=== PATIENT | female | born 1965 | race Caucasian/White ===

== ENCOUNTER 2016-08-06 15:01 | Emergency (ER) | payer BC, OTHER ==
[~2016-08-06] VITALS: Ht 172.7 cm; Wt 84.9 kg
[~2016-08-06 15:01] MED LIST: ONDA4TAB7 PO; SUMA100T PO
--- OUTSIDE RECORDS SUMMARY | 2016-08-06 15:06 | XMS REPORT | Referral Summary ---
Author Author [facility] Organization [facility] Address Unknown Phone Unavailable Care Team Providers Care Tank Bottom Assembler Name Role Phone Maral Shipman Primary Care Physician [phone] Encounter Date(s): 07/27/14 - 07/27/14 [facility] [address], [facility] [address] [place], [place] [address] Discharge Diagnosis: Mild sleep apnea Discharge Disposition: 01-Home or Self Care Attending Physician: Franklin Carrington MD Admitting Physician: Franklin Carrington MD Vital Signs No data available for this section Problem List Condition Effective Dates Status Health Status Informant Acute low back Active pain(Confirmed) Adult-onset Active obesity(Confirmed) Allergies(Confirmed) Active Benign essential Active hypertension(Confirm ed) FHx: sleep Active apnea(Confirmed) Fear of Active flying(Confirmed) GERD without Active esophagitis(Confirme d) Primary Active osteoarthritis of left hip(Confirmed) Chronic Active insomnia(Confirmed) Mild sleep Active apnea(Confirmed) Snorings(Confirmed) Active Benign Active headache(Confirmed) Trochanteric Active bursitis of left hip(Confirmed) Allergies, Adverse Reactions, Alerts Substance Reaction Severity Status oxyCODONE Nausea Active Medications atenolol 25 mg oral tablet See Instructions, 1 TABS ORAL BID, # 60 tabs, 5 Refill(s), eRx: [facility] [id number], 1 TABS ORAL BID Start Date: 11/24/14 Status: Ordered Ativan 0.5 mg oral tablet 0.5 mg 1 tabs, Oral, Bedtime (once a day), # 10 tabs, 0 Refill(s) Start Date: 08/13/14 Status: Ordered ibuprofen 200 mg oral tablet 800 mg 4 tabs, Oral, q6hr, 0 Refill(s) Start Date: 01/18/15 Status: Ordered Imitrex 100 mg oral tablet See Instructions, 1 TAB PO AT ONSET OF HEADACHE MAY REPEAT ONCE IN 24 HOURS MAX OF 2 TAB PER 24 HR., # 9 tabs, eRx: [facility] [id number], 1 TAB PO AT ONSET OF HEADACHE MAY REPEAT ONCE IN 24 HOURS MAX OF 2 TAB PER 24 HR. Start Date: 12/17/14 Status: Ordered ProAir HFA 90 mcg/inh inhalation aerosol 2 puffs, Inhalation, q4hr, as needed for wheezing, # 8.5 g, 1 Refill(s), Pharmacy: [facility] [id number] Start Date: 09/15/14 Status: Ordered Singulair 10 mg oral tablet 10 mg 1 tabs, Oral, qPM, # 90 tabs, 0 Refill(s), Pharmacy: [facility] 51046, 1 tabs Oral qPM Start Date: 09/15/14 Status: Ordered Results No data available for this section Immunizations Vaccine Date Refusal Reason tetanus/diphth/pertuss (Tdap) adult/adol 08/22/10 poliovirus vaccine, inactivated 11/16/03 tetanus-diphth toxoids (Td) adult/adol 11/16/03 Procedures Procedure Date Related Diagnosis Body Site sinus polypectomy/deviated septum 2006 H/O sinus surgery H/O total hysterectomy Social History Social History Type Response Smoking Status Never smoker Assessment and Plan No data available for this section
--- OUTSIDE RECORDS SUMMARY | 2016-08-06 15:06 | XMS REPORT | Referral Summary ---
Author Author [facility] Organization [facility] Address Unknown Phone Unavailable Care Team Providers Care Experimental Machining Lab Manager Name Role Phone Maral Shipman Primary Care Physician [phone] Encounter VC Date(s): 02/05/15 - 02/05/15 [facility], [address] [place] [address] Discharge Diagnosis: Chronic migraine without aura, intractable, without status migrainosus Discharge Disposition: 01-Home or Self Care Attending Physician: Kip Padgett MD Admitting Physician: Kip Padgett MD Vital Signs Most recent to 1 oldest [Reference Range]: Temperature Tympanic 35.9 degC [36.6-38.1 degC] *LOW* (02/05/15 10:07 AM) Peripheral Pulse 67 bpm Rate [60-100 bpm] (02/05/15 10:07 AM) Blood Pressure 140/62 mmHg [90-140/60-90 mmHg] (02/05/15 10:07 AM) SpO2 96 % (02/05/15 10:07 AM) Problem List Condition Effective Dates Status Health [...] of left hip(Confirmed) Allergies, Adverse Reactions, Alerts No Known Medication Allergies Medications atenolol 25 mg oral tablet See Instructions, 1 TABS ORAL BID, # 60 tabs, 5 Refill(s), eRx: [facility] [id number], 1 TABS ORAL BID Start Date: 11/24/14 [...] TAB PER 24 HR., # 9 tabs, 1 Refill(s), eRx: [facility] [id number], 1 TAB PO AT ONSET OF HEADACHE MAY REPEAT ONCE IN 24 HOURS MAX OF 2 TAB PER 24 HR. Start Date: 02/01/15 Status: Ordered ProAir HFA 90 mcg/inh inhalation aerosol 2 puffs, Inhalation, q4hr, as needed for wheezing, # 8.5 g, 1 Refill(s), Pharmacy: [facility] [id number] Start Date: 09/15/14 Status: Ordered Singulair 10 mg oral tablet 10 mg 1 tabs, Oral, qPM, # 90 tabs, 0 Refill(s), Pharmacy: [facility] [id number], 1 tabs Oral qPM Start Date: 09/15/14 [...] Smoking Status Never smoker Assessment and Plan Extracted from: Title: Ambulatory Patient Education Author: Kip Padgett MD Date: Family Medicine Migraine Headache A migraine headache is an intense, throbbing pain on one or both sides of your head. A migraine can last for 30 minutes to several hours. CAUSES The exact cause of a migraine headache is not always known. However, a migraine may be caused when nerves in the brain become irritated and release chemicals that cause inflammation. This causes pain. Certain things may also trigger migraines, such as: Alcohol. Smoking. Stress. Menstruation. Aged cheeses. Foods or drinks that contain nitrates, glutamate, aspartame, or tyramine. Lack of sleep. Chocolate. Caffeine. Hunger. Physical exertion. Fatigue. Medicines used to treat chest pain (nitroglycerine), control pills, estrogen, and some blood pressure medicines. SIGNS AND SYMPTOMS Pain on one or both sides of your head. Pulsating or throbbing pain. Severe pain that prevents daily activities. Pain that is aggravated by any physical activity. Nausea, vomiting, or both. Dizziness. Pain with exposure to bright lights, loud noises, or activity. General sensitivity to bright lights, loud noises, or smells. Before you get a migraine, you may get warning signs that a migraine is coming ( aura). An aura may include: Seeing flashing lights. Seeing bright spots, halos, or zigzag lines. Having tunnel vision or blurred vision. Having feelings of numbness or tingling. Having trouble talking. Having muscle weakness. DIAGNOSIS A migraine headache is often diagnosed based on: Symptoms. Physical exam. A CT scan or MRI of your head. These imaging tests cannot diagnose migraines, but they can help rule out other causes of headaches. TREATMENT Medicines may be given for pain and nausea. Medicines can also be given to help prevent recurrent migraines. HOME CARE INSTRUCTIONS Only take [id number] or prescription medicines for pain or discomfort as directed by your health care provider. The use of long-term narcotics is not recommended. Lie down in a dark, quiet room when you have a migraine. Keep a journal to find out what may trigger your migraine headaches. For example, write down: What you eat and drink. How much sleep you get. Any change to your diet or medicines. Limit alcohol consumption. Quit smoking if you smoke. Get 79 hours of sleep, or as recommended by your health care provider. Limit stress. Keep lights dim if bright lights bother you and make your migraines worse. SEEK IMMEDIATE MEDICAL CARE IF: Your migraine becomes severe. You have a fever. You have a stiff neck. You have vision loss. You have muscular weakness or loss of muscle control. You start losing your balance or have trouble walking. You feel faint or pass out. You have severe symptoms that are different from your first symptoms. MAKE SURE YOU: Understand these instructions. Will watch your condition. Will get help right away if you are not doing well or get worse. Document Released: 03/11/2006 Document Revised: 07/26/2014 Document Reviewed: ExitCare Patient Information 2015 [employer]. This information is not intended to replace advice given to you by your health care provider. Make sure you discuss any questions you have with your health care provider. Follow Up With: Where: When: Srinivas Shipman , only if needed Comments: Extracted from: Title: Office Visit Note Author: Kip Padgett MD Date: 02/05/15 Assessment/Plan Migraine She will be given Phenergan 50 mg and Toradol 60 mg intramuscularly. She will continue with her regular medication. She did bring a school boat driver with her today who will drive her home. She will follow-up with her PCP as needed.
--- OUTSIDE RECORDS SUMMARY | 2016-08-06 15:06 | XMS REPORT | Referral Summary ---
Author Author [facility] Organization [facility] Address Unknown Phone Unavailable Care Team Providers Care Batch Roller Operator Name Role Phone Laquitamireya Maral Primary Care Physician [phone] Encounter VC Date(s): 01/18/15 - 01/18/15 [facility] [address] [place], [place] [address] Discharge Diagnosis: Primary osteoarthritis of left hip Discharge Disposition: 01-Home or Self Care Attending Physician: Rudy Paul MD Admitting Physician: Rudy Paul MD Vital Signs Most recent to 1 oldest [Reference Range]: Respiratory Rate 18 br/min [14-20 br/min] (01/18/15 9:42 AM) Problem List Condition Effective Dates Status [...] BID, # 60 tabs, 5 Refill(s), eRx: [facility] [id number], 1 TABS ORAL BID Start Date: 11/24/14 [...] PER 24 HR., # 9 tabs, eRx: [facility] 31095, 1 TAB PO AT ONSET OF HEADACHE MAY REPEAT ONCE IN 24 HOURS MAX OF 2 TAB PER 24 HR. Start Date: 12/17/14 Status: Ordered ProAir HFA 90 mcg/inh inhalation aerosol 2 puffs, Inhalation, q4hr, as needed for wheezing, # 8.5 g, 1 Refill(s), Pharmacy: [facility] [id number] Start Date: 09/15/14 Status: Ordered Singulair 10 mg oral tablet 10 mg 1 tabs, Oral, qPM, # 90 tabs, 0 Refill(s), Pharmacy: [facility] [id number], 1 tabs Oral qPM Start Date: 09/15/14 Status: Ordered Results No data available for this section Immunizations Vaccine Date Refusal Reason tetanus/diphth/pertuss (Tdap) adult/adol 08/22/10 poliovirus vaccine, inactivated 11/16/03 tetanus-diphth toxoids (Td) adult/adol 11/16/03 Procedures Procedure Date Related Diagnosis Body Site Arthrocentesis, aspiration and/or injection, 01/18/15 major joint or bursa (eg, shoulder, hip, knee, subacromial bursa); without ultrasound guidance sinus polypectomy/deviated septum 2006 H/O sinus surgery H/O total hysterectomy Social History Social History Type Response Smoking Status Never smoker Assessment and Plan No data available for this section
--- OUTSIDE RECORDS SUMMARY | 2016-08-06 15:07 | XMS REPORT | Referral Summary ---
Author Author [facility] Organization [facility] Address Unknown Phone Unavailable Care Team Providers Care Manager Six Sigma Name Role Phone Maral Shipman Primary Care Physician [phone] Encounter VC Date(s): 09/15/14 - 09/15/14 [facility] [address] [place] [address]- Discharge Diagnosis: Asthma flare Discharge Diagnosis: Seasonal allergies Discharge Disposition: 01-Home or Self Care Attending Physician: Madai Gill APRN Admitting Physician: Madai Gill APRN Vital Signs Most recent to 1 oldest [Reference Range]: Temperature Tympanic 36.9 degC [36.6-38.1 degC] (09/15/14 10:15 AM) Peripheral Pulse 64 bpm Rate [60-100 bpm] (09/15/14 10:15 AM) Blood Pressure 122/68 mmHg [90-140/60-90 mmHg] (09/15/14 10:15 AM) SpO2 98 % (09/15/14 10:15 AM) Problem List Condition Effective Dates Status [...] BID, # 60 tabs, 5 Refill(s), eRx: [facility] 35354, 1 TABS ORAL BID Start Date: 11/24/14 Status: Ordered Ativan 0.5 mg oral tablet 0.5 mg 1 tabs, Oral, Bedtime (once a day), [place], # 10 tabs, 0 Refill(s) Start Date: 03/09/15 Status: Ordered ibuprofen 200 mg oral tablet 800 mg 4 tabs, Oral, q6hr, 0 Refill(s) Start Date: 01/18/15 Status: Ordered Imitrex 100 mg oral tablet See Instructions, 1 TAB PO AT ONSET OF HEADACHE MAY REPEAT ONCE IN 24 HOURS MAX OF 2 TAB PER 24 HR., # 9 tabs, 1 Refill(s), eRx: [facility] [id number], 1 TAB PO AT ONSET OF HEADACHE MAY REPEAT ONCE IN 24 HOURS MAX OF 2 TAB PER 24 HR. Start Date: 02/01/15 Status: Ordered ProAir HFA 90 mcg/inh inhalation aerosol 2 puffs, Inhalation, q4hr, as needed for wheezing, # 8.5 g, 1 Refill(s), Pharmacy: [facility] [id number] Start Date: 09/15/14 Status: Ordered Singulair 10 mg oral tablet 10 mg 1 tabs, Oral, qPM, # 90 tabs, 0 Refill(s), Pharmacy: [facility] 15208, 1 tabs Oral qPM Start Date: 09/15/14 [...]
--- OUTSIDE RECORDS SUMMARY | 2016-08-06 15:07 | XMS REPORT | Referral Summary ---
Author Author [facility] Organization [facility] Address Unknown Phone Unavailable Care Team Providers Care Pit Inspector Name Role Phone Maral Shipman Primary Care Physician [phone] Encounter VC Date(s): 02/24/16 - 02/24/16 [facility] [address] [place] [address] Discharge Diagnosis: Migraine headache Discharge Disposition: 01-Home or Self Care Attending Physician: Samira Carrington PA-C Admitting Physician: Samira Carrington PA-C Vital Signs Most recent to 1 oldest [Reference Range]: Peripheral Pulse 72 bpm Rate [60-100 bpm] (02/24/16 2:28 PM) Respiratory Rate 18 br/min [14-20 br/min] (02/24/16 2:28 PM) Blood Pressure 134/82 mmHg [90-140/60-90 mmHg] (02/24/16 2:28 PM) Problem List Condition Effective Dates Status Health Status Informant Acute low back Active pain(Confirmed) Adult-onset Active obesity(Confirmed) Allergies(Confirmed) Active Benign essential Active hypertension(Confirm ed) Chronic back Active pain(Confirmed) FHx: sleep Active apnea(Confirmed) Fear of Active flying(Confirmed) GERD without Active esophagitis(Confirme d) Primary Active osteoarthritis of left hip(Confirmed) Chronic Active insomnia(Confirmed) Mild sleep Active apnea(Confirmed) Snorings(Confirmed) Active Benign Active headache(Confirmed) Trochanteric Active bursitis of left hip(Confirmed) Allergies, Adverse Reactions, Alerts No Known Medication Allergies Medications atenolol 25 mg oral tablet See Instructions, TAKE 1 TABLET BY MOUTH TWICE DAILY, # 180 tabs, eRx: [facility] 77169, TAKE 1 TABLET BY MOUTH TWICE DAILY Start Date: 01/20/16 Status: Ordered Ativan 0.5 mg oral tablet 0.5 mg 1 tabs, Oral, Bedtime (once a day), [facility], # 10 tabs, 0 Refill(s) Start Date: 05/23/15 Status: Ordered hydroCHLOROthiazide 25 mg oral tablet 25 mg 1 tabs, Oral, Daily, # 30 tabs, 0 Refill(s), Pharmacy: [facility] [id number], 1 tabs Oral Daily Start Date: 02/06/16 Status: Ordered ibuprofen 200 mg oral tablet 800 mg 4 tabs, Oral, q6hr, 0 Refill(s) Start Date: 01/18/15 Status: Ordered ProAir HFA 90 mcg/inh inhalation aerosol 2 puffs, Inhalation, q4hr, as needed for wheezing, # 8.5 g, 1 Refill(s), Pharmacy: [facility] [id number] Start Date: 09/15/14 Status: Ordered SUMAtriptan 100 mg oral tablet See Instructions, TAKE 1 TABLET BY MOUTH AT ONSET OF HEADACHE. MAY REPEAT ONCE IN 24 HOURS. MAX OF 2 TABLET DAILY, # 9 tabs, 1 Refill(s), Pharmacy: [facility] [id number], TAKE 1 TABLET BY MOUTH AT ONSET OF HEADACHE. MAY REPEAT ONCE IN 24 HOURS. M... Start Date: 02/24/16 Status: Ordered Zofran 4 mg oral tablet 4 mg 1 tabs, Oral, q12hr, # 20 tabs, 0 Refill(s), Pharmacy: [facility] [id number], 1 tabs Oral q12hr Start Date: 02/24/16 Status: Ordered Results No data available for this section Immunizations Vaccine Date Refusal Reason tetanus/diphth/pertuss (Tdap) adult/adol 08/22/10 poliovirus vaccine, inactivated 11/16/03 tetanus-diphth toxoids (Td) adult/adol 11/16/03 Procedures Procedure Date Related Diagnosis Body Site sinus polypectomy/deviated septum 2006 H/O sinus surgery H/O total hysterectomy Social History Social History Type Response Smoking Status Never smoker Assessment and Plan Extracted from: Title: Office Visit Note- Migraine, Author: Samira Carrington PA-C Date : 02/24/16 URI Assessment/Plan Migraine headache Pt was given Demerol 50mg and Phenergan 50mg IM today in clinic. Has mechanic driver. Advised to go homeand rest.Refilled Zofran and Imitrex as well if needed. She is to let us know next week if cold sx areworsening after the migraine resolves. Ordered: ondansetron, 4 mg 1 tabs, Oral, q12hr, # 20 tabs, 0 Refill(s), Pharmacy: [facility] [id number], 1 tabs Oral q12hr SUMAtriptan, See Instructions, TAKE 1 TABLET BY MOUTH AT ONSET OF HEADACHE. MAY REPEAT ONCE IN 24 HOURS. MAX OF 2 TABLET DAILY, # 9 tabs, 1 Refill(s), Pharmacy: [facility] [id number], TAKE 1 TABLET BY MOUTH AT ONSET OF HEADACHE. MAY REPEAT ONCE IN 24 HOURS. M... Office Visit Level 3 Est [id number]
--- OUTSIDE RECORDS SUMMARY | 2016-08-06 15:07 | XMS REPORT | Referral Summary ---
Author Organization Unknown Address Unknown Phone Unavailable Care Team Providers Care Molder Fitting Name Role Phone Maral Shipman Primary Care Physician [phone] Encounter VC Date(s): 04/20/14 - 04/20/14 [facility], [place], Family [address] [place] [id number] Discharge Diagnosis: FHx: sleep apnea Discharge Diagnosis: Benign essential hypertension Discharge Diagnosis: Acute anxiety Discharge Diagnosis: Snorings Discharge Diagnosis: Chronic insomnia Discharge Diagnosis: Benign headache Discharge Diagnosis: GERD without esophagitis Discharge Diagnosis: Adult-onset obesity Discharge Disposition: Home or Self Care Attending Physician: Srinivas Shipman MD Admitting Physician: Srinivas Shipman MD Vital Signs Most recent to 1 oldest [Reference Range]: Blood Pressure 150/100 mmHg [90-140/60-90 mmHg] *HI* (04/20/14 10:40 AM) Problem List Condition Effective Dates Status Health Status Informant Adult-onset Active obesity(Confirmed) Allergies(Confirmed) Active Benign essential Active hypertension(Confirm ed) FHx: sleep Active apnea(Confirmed) GERD without Active esophagitis(Confirme d) Chronic Active insomnia(Confirmed) Snorings(Confirmed) Active Benign Active headache(Confirmed) Allergies, Adverse Reactions, Alerts Substance Reaction Severity Status oxyCODONE Nausea Active Medications Andra-D 12 Hour 1 tabs, Oral, q12hr, 0 Refill(s) Start Date: 09/11/13 Status: Ordered atenolol 25 mg oral tablet 1 tabs, Oral, BID, # 60 tabs, 0 Refill(s), Pharmacy: [id number] , 1 tabs Oral BID Start Date: 04/20/14 Status: Ordered Ativan 0.5 mg oral tablet 1 tabs, Oral, Bedtime (once a day), 0 Refill(s) Start Date: 09/11/13 Status: Ordered Imitrex 100 mg oral tablet See Instructions, 1 TAB PO AT ONSET OF HEADACHE MAY REPEAT ONCE IN 24 HOURS MAX OF 2 TAB PER 24 HR., # 9 tabs, eRx: [facility] [id number], 1 TAB PO AT ONSET OF HEADACHE MAY REPEAT ONCE IN 24 HOURS MAX OF 2 TAB PER 24 HR. Special Instructions: 1 TAB PO AT ONSET OF HEADACHE MAY REPEAT ONCE IN 24 HOURS MAX OF 2 TAB PER 24 HR. Start Date: 03/09/14 Status: Ordered Ventolin HFA 90 mcg/inh inhalation aerosol 2 puffs, Inhalation, q4hr, as needed for wheezing, # 8 g, 0 Refill(s) Start Date: 09/11/13 Status: Ordered Results Hematology Most recent to 1 oldest [Reference Range]: WBC [4.8-10.8 K/uL] 8.5 K/uL (04/20/14 11:31 AM) RBC [4.00-5.20 M/uL] 5.55 M/uL *HI* (04/20/14 11:31 AM) Hgb [12.0-16.0 13.2 gm/dL gm/dL] (04/20/14 11:31 AM) Hct [37.0-47.0 %] 41.4 % (04/20/14 11:31 AM) MCV [82.0-99.0 fL] 74.6 fL *LOW* (04/20/14 11:31 AM) MCH [27.0-32.0 pg] 23.8 pg *LOW* (04/20/14 11:31 AM) MCHC [32.0-36.0 31.9 gm/dL gm/dL] *LOW* (04/20/14 11:31 AM) RDW [11.5-14.5 %] 17.0 % *HI* (04/20/14 11:31 AM) Platelet [150-400 417 K/uL K/uL] *HI* (04/20/14 11:31 AM) MPV [8.8-14.8 fL] 11.0 fL (04/20/14 11:31 AM) Immature 0.2 % Granulocytes (04/20/14 11:31 AM) [0.0-1.0 %] Neutrophils [51-75 66 % %] (04/20/14 11:31 AM) Lymphocytes [20-46 23 % %] (04/20/14 11:31 AM) Monocytes [4-11 %] 9 % (04/20/14 AM) Eosinophils [0-4 %] 1 % (04/20/14 AM) Basophils [0-2 %] 1 % (04/20/14 AM) Neutro Absolute 5.55 THOUS [1.90-7.00 THOUS] (04/20/14 AM) Lymph Absolute 1.94 THOUS [0.80-3.30 THOUS] (04/20/14 AM) [place] Absolute 0.78 THOUS [0.30-1.00 THOUS] (04/20/14 AM) Eos Absolute 0.11 THOUS [0.00-0.50 THOUS] (04/20/14 AM) Baso Absolute 0.07 THOUS [0.00-0.20 THOUS] (04/20/14 AM) Chemistry Most recent to 1 oldest [Reference Range]: Sodium Lvl [135-144 138 mEq/L mEq/L] (04/20/14 AM) Potassium Lvl 4.3 mEq/L [3.5-5.2 mEq/L] (04/20/14 AM) Chloride [99-111 104 mEq/L mEq/L] (04/20/14 AM) CO2 [22-31 mEq/L] 24 mEq/L (04/20/14 AM) AGAP [3-20] 10 (04/20/14 AM) BUN [10-20 mg/dL] 12 mg/dL (04/20/14 AM) Glucose Lvl [70-99 89 mg/dL mg/dL] (04/20/14 AM) Creatinine Lvl 0.69 mg/dL [0.57-1.11 mg/dL] (04/20/14 AM) eGFR [>60 mL/min] >60 mL/min 1 (04/20/14 AM) Calcium Lvl 9.8 mg/dL [8.9-10.5 mg/dL] (04/20/14 AM) Albumin Lvl [3.5-5.0 4.4 gm/dL gm/dL] (04/20/14 11:31 AM) Total Protein 7.7 gm/dL [6.4-8.3 gm/dL] (04/20/14 11:31 AM) Globulin [1.8-4.0 3.3 gm/dL gm/dL] (04/20/14 11:31 AM) ALT [0-55 unit/L] 20 unit/L (04/20/14 11:31 AM) AST [5-34 unit/L] 18 unit/L (04/20/14 11:31 AM) Alk Phos [40-150 87 unit/L unit/L] (04/20/14 11:31 AM) Bili Total [0.2-1.2 1.2 mg/dL mg/dL] (04/20/14 11:31 AM) Chol [0-199 mg/dL] 196 mg/dL (04/20/14 11:31 AM) Trig [0-149 mg/dL] 125 mg/dL (04/20/14 11:31 AM) HDL [40-84 mg/dL] 56 mg/dL (04/20/14 11:31 AM) LDL [0-130 mg/dL] 115 mg/dL (04/20/14 11:31 AM) VLDL Cholesterol 25 mg/dL [0-28 mg/dL] (04/20/14 11:31 AM) Cardiac Risk 3.5 [0.0-5.0] (04/20/14 11:31 AM) 1Result Comment: Multiply eGFR results by 1.21 for race. Urinalysis Most recent to 1 oldest [Reference Range]: UA Color Yellow (04/20/14 4:45 PM) UA Appear Cloudy *ABN* (04/20/14 4:45 PM) UA pH [5.0-8.0] 5.5 (04/20/14 4:45 PM) UA Leuk Est Negative [Negative] (04/20/14 4:45 PM) UA Nitrite Negative [Negative] (04/20/14 4:45 PM) UA Protein Negative [Negative] (04/20/14 4:45 PM) UA Glucose Negative [Negative] (04/20/14 4:45 PM) UA Ketones Negative [Negative] (04/20/14 4:45 PM) UA Urobilinogen 0.2 mg/dL [<1.0 mg/dL] (04/20/14 4:45 PM) UA Bili [Negative] Negative (04/20/14 4:45 PM) UA Blood [Negative] Negative (04/20/14 4:45 PM) UA Spec Grav 1.020 [1.003-1.030] (04/20/14 4:45 PM) Type Voided (04/20/14 4:45 PM) Immunizations Vaccine Date Refusal Reason tetanus/diphth/pertuss (Tdap) adult/adol 08/22/10 poliovirus vaccine, inactivated 11/16/03 tetanus-diphth toxoids (Td) adult/adol 11/16/03 Procedures Procedure Date Related Diagnosis Body Site Collection of venous blood by venipuncture 04/20/1424-Mar-2014 00:38:50<$> sinus polypectomy/deviated septum 2006 Social History Social History Type Response Smoking Status Never smoker Assessment and Plan Extracted from: Title: Ambulatory Patient Education Author: Srinivas Shipman MD Date: Family Medicine Chest Pain Observation It is often hard to give a specific diagnosis for the cause of chest pain. Your symptoms had a chance of being caused by inadequate oxygen delivery to your heart (angina ). Angina that is not treated or evaluated can lead to a heart attack (myocardial infarction, VT ) or . Blood tests, electrocardiograms, and X-rays may have been done to help determine a possible cause of your chest pain. After evaluation and observation , your caregiver has determined that it is unlikely your pain was caused by angina. However, a full evaluation of your pain needs to be completed. You need to follow up with caregivers or diagnostic testing as directed. It is very important to keep your follow-up appointments. Not keeping your follow-up appointments could result in permanent heart damage, disability, or . If there is any problem keeping your follow-up appointments, you must call your caregiver. HOME CARE INSTRUCTIONS Due to the slight chance that your pain could be angina, it is important to follow healthy lifestyle habits and follow your caregiver's treatment plan: Maintain a healthy weight. Stay physically active and exercise regularly. Decrease your salt intake. Eat a diet low in saturated fats and cholesterol. Avoid foods fried in oil or made with fat. Talk to a compilation clerk to learn about heart healthy foods. Increase your fiber intake by including whole grains, vegetable, and fruits in your diet. Avoid situations that cause stress, anger, or depression. Take medication as advised by your caregiver. Report any side effects to your caregiver. Do not stop medications or adjust the dosages on your own. Quit smoking. Do not use nicotine patches or gum until you check with your caregiver. Keep your blood pressure, blood sugar, and cholesterol levels within normal limits. Limit alcohol intake to no more than 1 drink per day for non women and 2 drinks per day for men. Stop abusing drugs. SEEK MEDICAL CARE IF: You have severe chest pain or pressure which may include symptoms such as: Pain or pressure in the arms, neck, jaw, or back. Profuse sweating. Feeling sick to your stomach (nauseous ). Feeling short of breath while at rest. Having a fast or irregular heartbeat. You have chest pain that does not get better after rest or after taking your usual medicine. You wake from sleep with chest pain. You feel dizzy, faint, or experience extreme fatigue. You notice increasing shortness of breath during rest, sleep, or with activity. You are unable to sleep because you cannot breathe. You develop a frequent cough or you are coughing up blood. You have severe back or abdominal pain, are nauseated, or throw up (vomit ) . You develop severe weakness, dizziness, fainting, or chills. Any of these symptoms may represent a serious problem that is an emergency. Do not wait to see if the symptoms will go away. Call your local emergency services (911 in the [place] Do not drive yourself to the hospital. MAKE SURE YOU: Understand these instructions. Will watch your condition. Will get help right away if you are not doing well or get worse. Document Released: 04/13/2011 Document Revised: 06/02/2012 Document Reviewed: ExitCare Patient Information 2014 [employer]. No follow up information was provided. Extracted from: Title: Office Visit Note Author: Srinivas Shipman MD Date: 04/20/14 Assessment/Plan Acute anxiety Trial of bp meds and consult sleep medicinefirst then consider celexa 20mg po daily. Work note offered and deferred, not currently impacting work. Adult-onset obesity Restart victoza .6mg sq daily. She has the med at home already. Benign essential hypertension Trial of atenolol 25mg po bid and monitor bp. Await consult for sleep medicine also. Benign headache The patient's issue is nearly or completely resolved. There is no further issues or testing desired by them at this time. Stable on current meds at this time. May diminish with b-blockers. Chronic insomnia This issue is stable and appropriate refills, lab, and f/u have been discussed. She has ambien but is not needing it at this time. FHx: sleep apnea See above. Appt with Dr. Carrington. GERD without esophagitis The patient's issue is nearly or completely resolved. There is no further issues or testing desired by them at this time. Doing ok with otc meds at this time.EKG was normal. Consider GB sono if persisting or changing to dexilant 60mg po daily. Snorings To Sleep medicine.
--- OUTSIDE RECORDS SUMMARY | 2016-08-06 15:07 | XMS REPORT | Referral Summary ---
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 Operator Name Role Phone Maral Shipman Primary Care Physician [phone] Encounter VC Date(s): 06/13/15 - 06/13/15 [facility] Luis Newton [address] [place] [address]- Discharge Diagnosis: Cough Discharge Diagnosis: Pneumonia Discharge Disposition: 01-Home or Self Care Attending Physician: Cecil Haynes PA-C Admitting Physician: Cecil Haynes PA-C Vital Signs Most recent to 1 oldest [Reference Range]: Temperature Tympanic 36.7 degC [36.6-38.1 degC] (06/13/15 5:16 PM) Peripheral Pulse 94 bpm Rate [60-100 bpm] (06/13/15 5:16 PM) Blood Pressure 142/80 mmHg [90-140/60-90 mmHg] *HI* (06/13/15 5:16 PM) SpO2 98 % (06/13/15 5:16 PM) Problem List Condition Effective Dates Status [...] BID, # 60 tabs, 5 Refill(s), eRx: [facility] [id number], 1 TABS ORAL BID Start Date: 11/24/14 Status: Ordered Ativan 0.5 mg oral tablet 0.5 mg 1 tabs, Oral, Bedtime (once a day), Ying, # 10 tabs, 0 Refill(s) Start Date: 05/23/15 Status: Ordered ibuprofen 200 mg oral tablet 800 mg 4 tabs, Oral, q6hr, 0 Refill(s) Start Date: 01/18/15 Status: Ordered Imitrex 100 mg oral tablet See Instructions, 1 TAB PO AT ONSET OF HEADACHE MAY REPEAT ONCE IN 24 HOURS MAX OF 2 TAB PER 24 HR., # 9 tabs, eRx: [facility] [id number], 1 TAB PO AT ONSET OF HEADACHE MAY REPEAT ONCE IN 24 HOURS MAX OF 2 TAB PER 24 HR. Start Date: 05/05/15 Status: Ordered ProAir HFA 90 mcg/inh inhalation aerosol 2 puffs, Inhalation, q4hr, as needed for wheezing, # 8.5 g, 1 Refill(s), Pharmacy: [facility] [id number] Start Date: 09/15/14 Status: Ordered promethazine-codeine 6.25 mg-10 mg/5 mL oral syrup 5 mL, Oral, q6hr, as needed for cough, X 7 days, # 120 mL, 0 Refill(s) Start Date: 06/13/15 Stop Date: 06/20/15 Status: Ordered Zofran 4 mg oral tablet 4 mg 1 tabs, Oral, q12hr, # 20 tabs, 0 Refill(s), Pharmacy: [facility] [id number], 1 tabs Oral q12hr Start Date: 04/13/15 Status: Ordered Zorvolex 35 mg oral capsule See Instructions, 1 CAPS ORAL DAILY,X14 DAYS,PRN: NEEDED FOR PAIN, # 14 caps, eRx: [facility] [id number], 1 CAPS ORAL DAILY,X14 DAYS,PRN: NEEDED FOR PAIN Start Date: 05/31/15 Status: Ordered Results No data available for this section Immunizations Vaccine Date Refusal Reason tetanus/diphth/pertuss (Tdap) adult/adol 08/22/10 poliovirus vaccine, inactivated 11/16/03 tetanus-diphth toxoids (Td) adult/adol 11/16/03 Procedures Procedure Date Related Diagnosis Body Site sinus polypectomy/deviated septum 2006 H/O sinus surgery H/O total hysterectomy Social History Social History Type Response Smoking Status Never smoker Assessment and Plan Extracted from: Title: cough, fever Author: Cecil Haynes PA-C Date: 06/13/15 Assessment/Plan Cough I prescribed cough syrup take as directed. Pneumonia Patient's physical exam findings,overall appearance,and history suggested pneumoniaalthough no chest x-rayevidence was found on my interpretation. I elected to treat with azithromycin. Diagnosis and treatment discussed. Patient advised to follow up with PCP in 2- 3 days. Patient stable upon discharge, alert and orientated with no apparent distress, and indicated understanding of discharge instructions. If symptoms worsen at any time, patient will go to the nearest ER for further evaluation. Orders: promethazine-codeine, 5 mL, Oral, q6hr, as needed for cough, X 7 days , # 120 mL, 0 Refill(s)
--- OUTSIDE RECORDS SUMMARY | 2016-08-06 15:07 | XMS REPORT | Referral Summary ---
Author Author [facility] [place], Family Medicine Organization [facility] Family [facility] Address Unknown Phone Unavailable Care Team Providers Care Management Accountant Name Role Phone Maral Shipman Primary Care Physician [phone] Encounter VC Date(s): 10/11/14 - 10/11/14 [facility] Luis [place], Family [address] [place] [address] Discharge Disposition: 01-Home or Self Care Attending Physician: Srinivas Shipman MD Admitting Physician: Srinivas Shipman MD Vital Signs Most recent to 1 oldest [Reference Range]: Blood Pressure 140/90 mmHg [90-140/60-90 mmHg] (10/11/14 11:18 AM) Problem List Condition Effective Dates Status [...] BID, # 60 tabs, 5 Refill(s), eRx: [facility] [id number], 1 TABS ORAL BID Start Date: 11/24/14 Status: Ordered Ativan 0.5 mg oral tablet 0.5 mg 1 tabs, Oral, Bedtime (once a day), [facility], # 10 tabs, 0 Refill(s) Start Date: 03/09/15 Status: Ordered ibuprofen 200 mg oral tablet 800 mg 4 tabs, Oral, q6hr, 0 Refill(s) Start Date: 01/18/15 Status: Ordered Imitrex 100 mg oral tablet See Instructions, 1 TAB PO AT ONSET OF HEADACHE MAY REPEAT ONCE IN 24 HOURS MAX OF 2 TAB PER 24 HR., # 9 tabs, 1 Refill(s), eRx: [facility] [id number], 1 TAB PO AT ONSET OF HEADACHE MAY REPEAT ONCE IN 24 HOURS MAX OF 2 TAB PER 24 HR. Start Date: 02/01/15 Status: Ordered ProAir HFA 90 mcg/inh inhalation aerosol 2 puffs, Inhalation, q4hr, as needed for wheezing, # 8.5 g, 1 Refill(s), Pharmacy: [facility] [id number] Start Date: 09/15/14 Status: Ordered Singulair 10 mg oral tablet 10 mg 1 tabs, Oral, qPM, # 90 tabs, 0 Refill(s), Pharmacy: [facility] [id number], 1 tabs Oral qPM Start Date: 09/15/14 Status: Ordered Zofran 4 mg oral tablet 4 mg 1 tabs, Oral, q12hr, # 20 tabs, 0 Refill(s), Pharmacy: [facility] [id number], 1 tabs Oral q12hr Start Date: 04/13/15 Status: Ordered Results No data available for [...] Patient Education Author: Srinivas Shipman MD Date: Allergy Allergies Allergies may happen from anything your body is sensitive to. This may be food, medicines, pollens, chemicals, and nearly anything around you in everyday life that produces allergens. An allergen is anything that causes an allergy producing substance. Heredity is often a factor in causing these problems. This means you may have some of the same allergies as your parents. Food allergies happen in all age groups. Food allergies are some of the most severe and life threatening. Some common food allergies are cow's milk, seafood , eggs, nuts, wheat, and soybeans. SYMPTOMS Swelling around the mouth. An itchy red rash or hives. Vomiting or diarrhea. Difficulty breathing. SEVERE ALLERGIC REACTIONS ARE LIFE-THREATENING. This reaction is called anaphylaxis . It can cause the mouth and throat to swell and cause difficulty with breathing and swallowing. In severe reactions only a trace amount of food (for example, peanut oil in a salad) may cause within seconds. Seasonal allergies occur in all age groups. These are seasonal because they usually occur during the same season every year. They may be a reaction to molds , grass pollens, or tree pollens. Other causes of problems are house dust mite allergens, pet dander, and mold spores. The symptoms often consist of nasal congestion, a runny itchy nose associated with sneezing, and tearing itchy eyes. There is often an associated itching of the mouth and ears. The problems happen when you come in contact with pollens and other allergens. Allergens are the particles in the air that the body reacts to with an allergic reaction. This causes you to release allergic antibodies. Through a chain of events, these eventually cause you to release histamine into the blood stream. Although it is meant to be protective to the body, it is this release that causes your discomfort. This is why you were given anti-histamines to feel better. If you are unable to pinpoint the offending allergen, it may be determined by skin or blood testing. Allergies cannot be cured but can be controlled with medicine. Hay fever is a collection of all or some of the seasonal allergy problems. It may often be treated with simple bnei-pnc-idxlegq medicine such as diphenhydramine. Take medicine as directed. Do not drink alcohol or drive while taking this medicine. Check with your caregiver or package insert for child dosages. If these medicines are not effective, there are many new medicines your caregiver can prescribe. Stronger medicine such as nasal spray, eye drops, and corticosteroids may be used if the first things you try do not work well. Other treatments such as immunotherapy or desensitizing injections can be used if all else fails. Follow up with your caregiver if problems continue. These seasonal allergies are usually not life threatening. They are generally more of a nuisance that can often be handled using medicine. HOME CARE INSTRUCTIONS If unsure what causes a reaction, keep a diary of foods eaten and symptoms that follow. Avoid foods that cause reactions. If hives or rash are present: Take medicine as directed. You may use an bjrs-yzs-cbwlvvs antihistamine (diphenhydramine) for hives and itching as needed. Apply cold compresses (cloths) to the skin or take baths in cool water. Avoid hot baths or showers. Heat will make a rash and itching worse. If you are severely allergic: Following a treatment for a severe reaction, hospitalization is often required for closer follow-up. Wear a medic-alert bracelet or necklace stating the allergy. You and your family must learn how to give adrenaline or use an anaphylaxis kit. If you have had a severe reaction, always carry your anaphylaxis kit or EpiPen with you. Use this medicine as directed by your caregiver if a severe reaction is occurring. Failure to do so could have a fatal outcome. SEEK MEDICAL CARE IF: You suspect a food allergy. Symptoms generally happen within 30 minutes of eating a food. Your symptoms have not gone away within 2 days or are getting worse. You develop new symptoms. You want to retest yourself or your child with a food or drink you think causes an allergic reaction. Never do this if an anaphylactic reaction to that food or drink has happened before. Only do this under the care of a caregiver. SEEK IMMEDIATE MEDICAL CARE IF: You have difficulty breathing, are wheezing, or have a tight feeling in your chest or throat. You have a swollen mouth, or you have hives, swelling, or itching all over your body. You have had a severe reaction that has responded to your anaphylaxis kit or an EpiPen. These reactions may return when the medicine has worn off. These reactions should be considered life threatening. MAKE SURE YOU: Understand these instructions. Will watch your condition. Will get help right away if you are not doing well or get worse. Document Released: 06/04/2003 Document Revised: 07/06/2013 Document Reviewed: ExitCare Patient Information 2014 [employer] [facility]. No follow up information was provided. Extracted from: Title: Office Visit Note Author: Srinivas Shipman MD Date: 10/11/14 Assessment/Plan Acute URI Zpack. Allergies This issue is stable and appropriate refills, lab, and f/u have been discussed. Benign essential hypertension This issue is stable and appropriate refills, lab, and f/u have been discussed. The patient reports their blood pressure has been stable at home and is not having any significant or related problems. There has been no chest pain, chest pressure, soa/[place]. [place] [facility] Ocuflox .3% two drops tid for five days. Addendum A work/school note was offered and deferred by the patient. by Srinivas Shipman MD on October 11, 2014 11:28:49 CDT
--- OUTSIDE RECORDS SUMMARY | 2016-08-06 15:07 | XMS REPORT | Referral Summary ---
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 Role Phone Maral Shipman Primary Care Physician [phone] Encounter VC Date(s): 02/06/16 - 02/06/16 [facility] Luis Newton Family [address] [place] [address] Discharge Diagnosis: Benign essential hypertension Discharge Disposition: 01-Home or Self Care Attending Physician: Samira Carrington PA-C Admitting Physician: Samira Carrington PA-C Vital Signs Most recent to 1 oldest [Reference Range]: Peripheral Pulse 60 bpm Rate [60-100 bpm] (02/06/16 2:19 PM) Blood Pressure 148/96 mmHg [90-140/60-90 mmHg] *HI* (02/06/16 2:19 PM) SpO2 97 % (02/06/16 2:19 PM) Problem List Condition Effective Dates Status [...] MOUTH TWICE DAILY, # 180 tabs, eRx: [facility] [id number], TAKE 1 TABLET BY MOUTH TWICE DAILY Start Date: 01/20/16 Status: Ordered Ativan 0.5 mg oral tablet 0.5 mg 1 tabs, Oral, Bedtime (once a day), [place], # 10 tabs, 0 Refill(s) Start Date: 05/23/15 Status: Ordered hydroCHLOROthiazide 25 mg oral tablet 25 mg 1 tabs, Oral, Daily, # 30 tabs, 0 Refill(s), [facility], 1 tabs Oral Daily Start Date: 02/06/16 Status: Ordered ibuprofen 200 mg oral tablet 800 mg 4 tabs, Oral, q6hr, 0 Refill(s) Start Date: 01/18/15 Status: Ordered ProAir HFA 90 mcg/inh inhalation aerosol 2 puffs, Inhalation, q4hr, as needed for wheezing, # 8.5 g, 1 Refill(s), Pharmacy: [facility] [id number] Start Date: 09/15/14 Status: Ordered SUMAtriptan 100 mg oral tablet See Instructions, TAKE 1 TABLET BY MOUTH AT ONSET OF HEADACHE. MAY REPEAT ONCE IN 24 HOURS. MAX OF 2 TABLET DAILY, # 9 tabs, eRx: [facility] [id number], TAKE 1 TABLET BY MOUTH AT ONSET OF HEADACHE. MAY REPEAT ONCE IN 24 HOURS. MAX OF 2 TABLET DAILY Start Date: 12/26/15 Status: Ordered Zofran 4 mg oral tablet 4 mg 1 tabs, Oral, q12hr, # 20 tabs, 0 Refill(s), Pharmacy: [facility] [id number], 1 tabs Oral q12hr Start Date: 04/13/15 [...]
--- OUTSIDE RECORDS SUMMARY | 2016-08-06 15:07 | XMS REPORT | Referral Summary ---
Author Author [facility], [facility] Organization [facility], [facility], [facility] Address Unknown Phone Unavailable Care Team Providers Care Sales Support Advisor Name Role Phone Maral Shipman Primary Care Physician [phone] Encounter Date(s): 08/03/14 - 08/03/14 [facility], [facility], [place] [address] [place] [address] Discharge Diagnosis: Mild sleep apnea Discharge Disposition: 01-Home or Self Care Attending Physician: Franklin Carrington MD Admitting Physician: Franklin Carrington MD Vital Signs Most recent to 1 oldest [Reference Range]: Peripheral Pulse 67 bpm Rate [60-100 bpm] (08/03/14 3:27 PM) Blood Pressure 124/84 mmHg [90-140/60-90 mmHg] (08/03/14 3:27 PM) SpO2 93 % (08/03/14 3:27 PM) Problem List Condition Effective Dates Status [...] BID, # 60 tabs, 5 Refill(s), eRx: [facility] [id number], 1 TABS ORAL BID Start Date: 11/24/14 [...] PER 24 HR., # 9 tabs, eRx: [facility] [id number], 1 TAB PO AT ONSET OF HEADACHE MAY REPEAT ONCE IN 24 HOURS MAX OF 2 TAB PER 24 HR. Start Date: 12/17/14 Status: Ordered ProAir HFA 90 mcg/inh inhalation aerosol 2 puffs, Inhalation, q4hr, as needed for wheezing, # 8.5 g, 1 Refill(s), Pharmacy: [facility] [id number] Start Date: 09/15/14 Status: Ordered Singulair 10 mg oral tablet 10 mg 1 tabs, Oral, qPM, # 90 tabs, 0 Refill(s), Pharmacy: [facility] [id number], 1 tabs Oral qPM Start Date: 09/15/14 [...] Extracted from: Title: Ambulatory Patient Education Author: Franklin Carrington MD Date: Family Medicine CPAP and BIPAP Information CPAP and BIPAP are methods of helping you breathe with the use of air pressure. CPAP stands for "continuous positive airway pressure." BIPAP stands for "bi- level positive airway pressure." In both methods, air is blown into your air passages to help keep you breathing well. With CPAP, the amount of pressure stays the same while you breathe in and out. CPAP is most commonly used for obstructive sleep apnea. For obstructive sleep apnea, CPAP works by holding your airways open so that they do not collapse when your muscles relax during sleep. BIPAP is similar to CPAP except the amount of pressure is increased when you inhale. This helps you take larger breaths. Your health care provider will recommend whether CPAP or BIPAP would be more helpful for you. WHY ARE CPAP AND BIPAP TREATMENTS USED? CPAP or BIPAP can be helpful if you have: Sleep apnea. Chronic obstructive pulmonary disease (COPD). Diseases that weaken the muscles of the chest, including muscular dystrophy or neurological diseases such as amyotrophic lateral sclerosis (ALS). Other problems that cause breathing to be weak, abnormal, or difficult. HOW IS CPAP OR BIPAP ADMINISTERED? Both CPAP and BIPAP are provided by a small machine with a flexible plastic tube that attaches to a plastic mask. The mask fits on your face, and air is blown into your air passages through your nose or mouth. The amount of pressure that is used to blow the air into your air passages can be set on the machine. Your health care provider will determine the pressure setting that should be used based on your individual needs. WHEN SHOULD CPAP OR BIPAP BE USED? In most cases, the mask is worn only when sleeping. Generally, you will need to wear the mask throughout the night and during the daytime if you take a nap. In a few cases involving certain medical conditions, people also need to wear the mask at other times when they are awake. Follow your health care provider's instructions for when to use the machine. USING THE MASK Because the mask needs to be snug, some people feel a trapped or closed-in feeling (claustrophobic ) when first using the mask. You may need to get used to the mask gradually. To do this, you can first hold the mask loosely over your nose or mouth. Gradually apply the mask more snugly. You can also gradually increase the amount of time that you use the mask. Masks are available in various types and sizes. Some fit over your mouth and nose, and some fit over just your nose. If your mask does not fit well, talk to your health care provider about getting a different one. If you are using a nasal mask and you tend to breathe through your mouth, a chin strap may be applied to help keep your mouth closed. The CPAP and BIPAP machines have alarms that may sound if the mask comes off or develops a leak. If you have trouble with the mask, it is very important that you talk to your health care provider about finding a way to make the mask easier to tolerate. Do not stop using the mask. This could have a negative impact on your health. TIPS FOR USING THE MACHINE Place your CPAP or BIPAP machine on a secure table or stand near an electrical outlet. Know where the on-off switch is located on the machine. Follow your health care provider's instructions for how to set the pressure on your machine and when you should use it. Do not eat or drink while the CPAP or BIPAP machine is on. Food or fluids could get pushed into your lungs by the pressure of the CPAP or BIPAP. Do not smoke. Tobacco smoke residue can damage the machine. For home use, CPAP and BIPAP machines can be rented or purchased through home health care companies. Many different brands of machines are available. Renting a machine before purchasing may help you find out which particular machine works well for you. SEEK IMMEDIATE MEDICAL CARE IF: You have redness or open areas around your nose or mouth where the mask fits. You have trouble operating the CPAP or BIPAP machine. You cannot tolerate wearing the CPAP or BIPAP mask. Document Released: 12/07/2004 Document Revised: 11/11/2013 Document Reviewed: [facility] Patient Information 2014 [employer]. No follow up information was provided. Extracted from: Title: Office Visit Note Author: Franklin Carrington MD Date: 08/03/14 Assessment/Plan Impression: Mild obstructive sleep apnea syndrome. The patient is quite sleepy, and she has some significant events with desaturations during supine REM sleep. I would recommend a trial of treatment with CPAP. Plan: We reviewed the study in detail. She was given a summary page and an example page. After discussion of the options, we are going to loan her an auto titrating CPAP unit set at 5-12 cm as a therapeutic trial. We will see her back after a month of treatment. Hopefully, she will be sleeping better and feeling better with the CPAP. Referrals to Other Providers Referred by: Franklin Carrington MD
--- OUTSIDE RECORDS SUMMARY | 2016-08-06 15:07 | XMS REPORT | Referral Summary ---
Author Author [facility] Organization [facility] Address Unknown Phone Unavailable Care Team Providers Care It Technical Support Specialist Name Role Phone Maral Shipman Primary Care Physician [phone] Encounter VC Date(s): 09/14/14 - 09/14/14 [facility], [address] [place] [address]- Discharge Diagnosis: Exertional shortness of breath Discharge Diagnosis: Asthma Discharge Diagnosis: Seasonal allergies Discharge Disposition: 01-Home or Self Care Attending Physician: Madai Gill APRN Admitting Physician: Madai Gill APRN Vital Signs Most recent to 1 oldest [Reference Range]: Temperature Tympanic 36.7 degC [36.6-38.1 degC] (09/14/14 3:34 PM) Peripheral Pulse 86 bpm Rate [60-100 bpm] (09/14/14 3:34 PM) Blood Pressure 126/84 mmHg [90-140/60-90 mmHg] (09/14/14 3:34 PM) SpO2 98 % (09/14/14 3:34 PM) Problem List Condition Effective Dates Status [...] BID, # 60 tabs, 5 Refill(s), eRx: [facility] [id number], 1 TABS ORAL BID Start Date: 11/24/14 [...] HR., # 9 tabs, 1 Refill(s), eRx: [facility] [id number], 1 TAB PO AT ONSET OF HEADACHE MAY REPEAT ONCE IN 24 HOURS MAX OF 2 TAB PER 24 HR. Start Date: 02/01/15 Status: Ordered ProAir HFA 90 mcg/inh inhalation aerosol 2 puffs, Inhalation, q4hr, as needed for wheezing, # 8.5 g, 1 Refill(s), Pharmacy: [facility] [id number] Start Date: 09/15/14 Status: Ordered Singulair 10 mg oral tablet 10 mg 1 tabs, Oral, qPM, # 90 tabs, 0 Refill(s), Pharmacy: [facility] [id number], 1 tabs Oral qPM Start Date: 09/15/14 [...]
--- OUTSIDE RECORDS SUMMARY | 2016-08-06 15:08 | XMS REPORT | Referral Summary ---
Author Author [facility], [facility] Organization [facility] Address Unknown Phone Unavailable Care Team Providers Care Personalized Living Assistant Name Role Phone Maral Shipman Primary Care Physician [phone] Encounter VC Date(s): 12/13/14 - 12/13/14 [facility] Family [address] [place] [address] [place] Discharge Disposition: 01-Home or Self Care Attending Physician: Srinivas Shipman MD Admitting Physician: Srinivas Shipman MD Vital Signs Most recent to 1 oldest [Reference Range]: Blood Pressure 140/90 mmHg [90-140/60-90 mmHg] (12/13/14 8:43 AM) Problem List Condition Effective Dates Status [...] BID, # 60 tabs, 5 Refill(s), eRx: [facility] [id number], 1 TABS ORAL BID Start Date: 11/24/14 Status: Ordered Ativan 0.5 mg oral tablet 0.5 mg 1 tabs, Oral, Bedtime (once a day), [facility], # 10 tabs, 0 Refill(s) Start Date: 05/23/15 Status: Ordered ibuprofen 200 mg oral tablet 800 mg 4 tabs, Oral, q6hr, 0 Refill(s) Start Date: 01/18/15 Status: Ordered Imitrex 100 mg oral tablet See Instructions, 1 TAB PO AT ONSET OF HEADACHE MAY REPEAT ONCE IN 24 HOURS MAX OF 2 TAB PER 24 HR., # 9 tabs, eRx: [facility] [id number], 1 TAB PO AT ONSET OF HEADACHE MAY REPEAT ONCE IN 24 HOURS MAX OF 2 TAB PER 24 HR. Start Date: 05/05/15 Status: Ordered ProAir HFA 90 mcg/inh inhalation aerosol 2 puffs, Inhalation, q4hr, as needed for wheezing, # 8.5 g, 1 Refill(s), Pharmacy: [facility] [id number] Start Date: 09/15/14 Status: Ordered Zofran 4 mg oral tablet 4 mg 1 tabs, Oral, q12hr, # 20 tabs, 0 Refill(s), Pharmacy: [facility] [id number], 1 tabs Oral q12hr Start Date: 04/13/15 Status: Ordered Zorvolex 35 mg oral capsule See Instructions, 1 CAPS ORAL DAILY,X14 DAYS,PRN: NEEDED FOR PAIN, # 14 caps, eRx: [facility] [id number], 1 CAPS ORAL DAILY,X14 DAYS,PRN: NEEDED FOR [...] Author: Srinivas Shipman MD Date: Family Medicine Arthralgia Your caregiver has diagnosed you as suffering from an arthralgia. Arthralgia means there is pain in a joint. This can come from many reasons including: Bruising the joint which causes soreness (inflammation) in the joint. Wear and tear on the joints which occur as we grow older (osteoarthritis). Overusing the joint. Various forms of arthritis. Infections of the joint. Regardless of the cause of pain in your joint, most of these different pains respond to anti-inflammatory drugs and rest. The exception to this is when a joint is infected, and these cases are treated with antibiotics, if it is a bacterial infection. HOME CARE INSTRUCTIONS Rest the injured area for as long as directed by your caregiver. Then slowly start using the joint as directed by your caregiver and as the pain allows. Crutches as directed may be useful if the ankles, knees or hips are involved. If the knee was splinted or casted, continue use and care as directed. If an stretchy or elastic wrapping bandage has been applied today, it should be removed and re-applied every 3 to 4 hours. It should not be applied tightly, but firmly enough to keep swelling down. Watch toes and feet for swelling, bluish discoloration, coldness, numbness or excessive pain. If any of these problems (symptoms) occur, remove the pedro bandage and re-apply more loosely. If these symptoms persist, contact your caregiver or return to this location. For the first 24 hours, keep the injured extremity elevated on pillows while lying down. Apply ice for 15-20 minutes to the sore joint every couple hours while awake for the first half day. Then 03-04 times per day for the first 48 hours. Put the ice in a plastic bag and place a towel between the bag of ice and your skin. Wear any splinting, casting, elastic bandage applications, or slings as instructed. Only take yuqr-vgf-xsmavst or prescription medicines for pain, discomfort, or fever as directed by your caregiver. Do not use aspirin immediately after the injury unless instructed by your physician. Aspirin can cause increased bleeding and bruising of the tissues. If you were given crutches, continue to use them as instructed and do not resume weight bearing on the sore joint until instructed. Persistent pain and inability to use the sore joint as directed for more than 2 to 3 days are warning signs indicating that you should see a caregiver for a follow-up visit as soon as possible. Initially, a hairline fracture (break in bone) may not be evident on X-rays. Persistent pain and swelling indicate that further evaluation, non-weight bearing or use of the joint (use of crutches or slings as instructed), or further X-rays are indicated. X-rays may sometimes not show a small fracture until a week or 10 days later. Make a follow-up appointment with your own caregiver or one to whom we have referred you. A radiologist (specialist in reading X-rays) may read your X-rays. Make sure you know how you are to obtain your X-ray results. Do not assume everything is normal if you do not hear from us. SEEK MEDICAL CARE IF: Bruising, swelling, or pain increases. SEEK IMMEDIATE MEDICAL CARE IF: Your fingers or toes are numb or blue. The pain is not responding to medications and continues to stay the same or get worse. The pain in your joint becomes severe. You develop a fever over 102 F (38.9 C). It becomes impossible to move or use the joint. MAKE SURE YOU: Understand these instructions. Will watch your condition. Will get help right away if you are not doing well or get worse. Document Released: 03/11/2006 Document Revised: 06/02/2012 Document Reviewed: [facility] Patient Information 2015 [employer]. This information is not intended to replace advice given to you by your health care provider. Make sure you discuss any questions you have with your health care provider. No follow up information was provided. Extracted from: Title: Office Visit Note Author: Srinivas Shipman MD Date: 12/13/14 Assessment/Plan Acute back pain Fowler 5 number 60 tabs, may cause sedation. 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 Likely will need an MRI and consult with Dr. Spain later this week if not improving. Acute hip pain Toradol 60mg IM for pain today. To Rheumatology if not improving. Benign essential hypertension This issue is stable and appropriate refills, lab, and f/u have been discussed. The patient reports their blood pressure has been stable at home and is not having any significant or related problems. There has been no chest pain, chest pressure, soa/lancaster. Chronic insomnia This issue is stable and appropriate refills, lab, and f/u have been discussed. GERD without esophagitis This issue is stable and appropriate refills, lab, and f/u have been discussed.
--- OUTSIDE RECORDS SUMMARY | 2016-08-06 15:08 | XMS REPORT | Referral Summary ---
Author Author [facility], [facility], [facility] Organization [facility], [facility], [facility] Address Unknown Phone Unavailable Care Team Providers Care Loading Dock Hand Name Role Phone Maral Shipman Primary Care Physician [phone] Encounter Date(s): 08/03/14 - 08/03/14 [facility], [facility], [place] [address] [place] [address] Discharge Diagnosis: Mild sleep apnea Discharge Disposition: [...] BID, # 60 tabs, 5 Refill(s), eRx: [email or web address] [id number], 1 TABS ORAL BID Start Date: 11/24/14 [...] PER 24 HR., # 9 tabs, eRx: [email or web address] [id number], 1 TAB PO AT ONSET OF HEADACHE MAY REPEAT ONCE IN 24 HOURS MAX OF 2 TAB PER 24 HR. Start Date: 12/17/14 Status: Ordered ProAir HFA 90 mcg/inh inhalation aerosol 2 puffs, Inhalation, q4hr, as needed for wheezing, # 8.5 g, 1 Refill(s), Pharmacy: [email or web address] 39167 Start Date: 09/15/14 Status: Ordered Singulair 10 mg oral tablet 10 mg 1 tabs, Oral, qPM, # 90 tabs, 0 Refill(s), Pharmacy: [email or web address] [id number], 1 tabs Oral qPM Start Date: 09/15/14 [...] Released: 12/07/2004 Document Revised: 11/11/2013 Document Reviewed: [facility] Patient Information 2014 [employer]. No follow up information was provided. Extracted [...]
--- OUTSIDE RECORDS SUMMARY | 2016-08-06 15:08 | XMS REPORT | Referral Summary ---
Author Author [facility], [facility] Organization [facility] Family [facility] Address Unknown Phone Unavailable Care Team Providers Care Rotary Driller Name Role Phone Maral Shipman Primary Care Physician [phone] Encounter VC Date(s): 11/04/14 - 11/04/14 [facility], Family [address] [place] [address] Discharge Disposition: 01-Home or Self Care Attending Physician: Srinivas Shipman MD Admitting Physician: Srinivas Shipman MD Vital Signs Most recent to 1 oldest [Reference Range]: Blood Pressure 140/80 mmHg [90-140/60-90 mmHg] (11/04/14 11:39 AM) Problem List Condition Effective Dates Status [...] BID, # 60 tabs, 5 Refill(s), eRx: [facility] [id number], 1 TABS ORAL BID Start Date: 11/24/14 Status: Ordered Ativan 0.5 mg oral tablet 0.5 mg 1 tabs, Oral, Bedtime (once a day), [facility], # 10 tabs, 0 Refill(s) Start Date: 03/09/15 Status: Ordered ibuprofen 200 mg oral tablet 800 mg 4 tabs, Oral, q6hr, 0 Refill(s) Start Date: 01/18/15 Status: Ordered Imitrex 100 mg oral tablet See Instructions, 1 TAB PO AT ONSET OF HEADACHE MAY REPEAT ONCE IN 24 HOURS MAX OF 2 TAB PER 24 HR., # 9 tabs, eRx: [facility] [id number], 1 TAB PO AT ONSET OF HEADACHE MAY REPEAT ONCE IN 24 HOURS MAX OF 2 TAB PER 24 HR. Start Date: 05/05/15 Status: Ordered ProAir HFA 90 mcg/inh inhalation aerosol 2 puffs, Inhalation, q4hr, as needed for wheezing, # 8.5 g, 1 Refill(s), Pharmacy: [facility] [id number] Start Date: 09/15/14 Status: Ordered Singulair 10 mg oral tablet 10 mg 1 tabs, Oral, qPM, # 90 tabs, 0 Refill(s), Pharmacy: [facility] [id number], 1 tabs Oral qPM Start Date: 09/15/14 Status: Ordered Zofran 4 mg oral tablet 4 mg 1 tabs, Oral, q12hr, # 20 tabs, 0 Refill(s), Pharmacy: [facility] [id number], 1 tabs Oral q12hr Start Date: 04/13/15 [...] Author: Srinivas Shipman MD Date: Family Medicine Bursitis Bursitis is a swelling and soreness (inflammation) of a fluid-filled sac (bursa ) that overlies and protects a joint. It can be caused by injury, overuse of the joint, arthritis or infection. The joints most likely to be affected are the elbows, shoulders, hips and knees. HOME CARE INSTRUCTIONS Apply ice to the affected area for 15-20 minutes each hour while awake for 2 days. Put the ice in a plastic bag and place a towel between the bag of ice and your skin. Rest the injured joint as much as possible, but continue to put the joint through a full range of motion, 4 times per day. (The shoulder joint especially becomes rapidly "frozen" if not used.) When the pain lessens, begin normal slow movements and usual activities. Only take hjvg-cvb-jsrjwjy or prescription medicines for pain, discomfort or fever as directed by your caregiver. Your caregiver may recommend draining the bursa and injecting medicine into the bursa. This may help the healing process. Follow all instructions for follow-up with your caregiver. This includes any orthopedic referrals, physical therapy and rehabilitation. Any delay in obtaining necessary care could result in a delay or failure of the bursitis to heal and chronic pain. SEEK IMMEDIATE MEDICAL CARE IF: Your pain increases even during treatment. You develop an oral temperature above 102 F (38.9 C) and have heat and inflammation over the involved bursa. MAKE SURE YOU: Understand these instructions. Will watch your condition. Will get help right away if you are not doing well or get worse. Document Released: 03/08/2001 Document Revised: 06/02/2012 Document Reviewed: [facility] Patient Information 2015 [employer]. This information is not intended to replace advice given to you by your health care provider. Make sure you discuss any questions you have with your health care provider. No follow up information was provided. Extracted from: Title: Office Visit Note Author: Srinivas Shipman MD Date: 11/04/14 Assessment/Plan Acute low back pain This issue is stable and appropriate refills, lab, and f/ u have been discussed. Xray pending. Consider steroid injection to greater trochanter prior to any MRI or consult for this area. 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 Acute neck pain Xray pending. Superior 5 number forty for pain. Will need another appt and narcotic agreement for more if needed. MRI for radicular pain lasing over six weeks and not improved with current extensive medications. Benign essential hypertension This issue is stable and appropriate refills, lab, and f/u have been discussed. The patient reports their blood pressure has been stable at home and is not having any significant or related problems. There has been no chest pain, chest pressure, soa/l[place]. Benign headache This issue is stable and appropriate refills, lab, and f/u have been discussed. Continue current meds. Chronic insomnia This issue is stable and appropriate refills, lab, and f/u have been discussed. GERD without esophagitis This issue is stable and appropriate refills, lab, and f/u have been discussed. Trochanteric bursitis of left hip Continue current meds. To [facility] Rheumatology for evaluation and consideration of steroid injection. Xrays pending.
--- OUTSIDE RECORDS SUMMARY | 2016-08-06 15:08 | XMS REPORT | Referral Summary ---
Author Author [facility], [facility] [place] [facility] Address Unknown Phone Unavailable Care Team Providers Care Volunteer Services Supervisor Name Role Phone Maral Shipman Primary Care Physician [phone] Encounter Date(s): 07/27/14 - 07/27/14 [facility], [facility] [place] [address], [facility] [address] [place], [place] [address] Discharge Diagnosis: Mild sleep apnea Discharge [...] BID, # 60 tabs, 5 Refill(s), eRx: [facility] [id number], 1 TABS ORAL BID Start Date: 11/24/14 [...] PER 24 HR., # 9 tabs, eRx: [facility] [id number], 1 TAB PO AT ONSET OF HEADACHE MAY REPEAT ONCE IN 24 HOURS MAX OF 2 TAB PER 24 HR. Start Date: 12/17/14 Status: Ordered ProAir HFA 90 mcg/inh inhalation aerosol 2 puffs, Inhalation, q4hr, as needed for wheezing, # 8.5 g, 1 Refill(s), Pharmacy: [facility] [id number] Start Date: 09/15/14 Status: Ordered Singulair 10 mg oral tablet 10 mg 1 tabs, Oral, qPM, # 90 tabs, 0 Refill(s), Pharmacy: [facility] [id number], 1 tabs Oral qPM Start Date: 09/15/14 [...]
--- OUTSIDE RECORDS SUMMARY | 2016-08-06 15:08 | XMS REPORT | Referral Summary ---
Author Author [facility] Organization [facility] Address Unknown Phone Unavailable Care Team Providers Care Manager Games Name Role Phone Maral Shipman Primary Care Physician [phone] Encounter Date(s): 08/03/14 - 08/03/14 [facility], [place] [address] [place] [address] Discharge Diagnosis: Mild sleep apnea [...] BID, # 60 tabs, 5 Refill(s), eRx: [facility] [id number], 1 TABS ORAL BID Start Date: 11/24/14 [...] PER 24 HR., # 9 tabs, eRx: [facility] [id number], 1 TAB PO AT ONSET OF HEADACHE MAY REPEAT ONCE IN 24 HOURS MAX OF 2 TAB PER 24 HR. Start Date: 12/17/14 Status: Ordered ProAir HFA 90 mcg/inh inhalation aerosol 2 puffs, Inhalation, q4hr, as needed for wheezing, # 8.5 g, 1 Refill(s), Pharmacy: [facility] [id number] Start Date: 09/15/14 Status: Ordered Singulair 10 mg oral tablet 10 mg 1 tabs, Oral, qPM, # 90 tabs, 0 Refill(s), Pharmacy: [facility] [id number], 1 tabs Oral qPM Start Date: 09/15/14 [...] Document Revised: 11/11/2013 Document Reviewed: [facility] Patient Information 2014 [employer]. No follow up information was provided. Extracted [...]
--- OUTSIDE RECORDS SUMMARY | 2016-08-06 15:08 | XMS REPORT | Referral Summary ---
Author Author [facility] Organization [facility] Address Unknown Phone Unavailable Care Team Providers Care Biomedical Specialist Name Role Phone Maral Shipman Primary Care Physician [phone] Encounter [facility] [id number] Date(s): 11/26/14 - 11/26/14 [facility] [address] [place] [address] Discharge Diagnosis: Neck pain Discharge Diagnosis: Low back pain Discharge Diagnosis: Trochanteric bursitis Discharge Disposition: 01-Home or Self Care Attending Physician: Daylin Isidro MD Admitting Physician: Daylin Isidro MD Referring Physician: Srinivas Shipman MD Vital Signs Most recent to 1 oldest [Reference Range]: Peripheral Pulse 66 bpm Rate [60-100 bpm] (11/26/14 11:11 AM) Blood Pressure 118/75 mmHg [90-140/60-90 mmHg] (11/26/14 11:11 AM) Problem List Condition Effective Dates Status [...] BID, # 60 tabs, 5 Refill(s), eRx: [facility] [id number], 1 TABS ORAL BID Start Date: 11/24/14 [...] PER 24 HR., # 9 tabs, eRx: [facility] [id number], 1 TAB PO AT ONSET OF HEADACHE MAY REPEAT ONCE IN 24 HOURS MAX OF 2 TAB PER 24 HR. Start Date: 05/05/15 Status: Ordered ProAir HFA 90 mcg/inh inhalation aerosol 2 puffs, Inhalation, q4hr, as needed for wheezing, # 8.5 g, 1 Refill(s), Pharmacy: [facility] Start Date: 09/15/14 Status: Ordered Singulair 10 mg oral tablet 10 mg 1 tabs, Oral, qPM, # 90 tabs, 0 Refill(s), Pharmacy: [facility] [id number], 1 tabs Oral qPM Start Date: 09/15/14 Status: Ordered traMADol 50 mg oral tablet 50 mg 1 tabs, Oral, q12hr, as needed for pain, Ying, # 60 tabs, 0 Refill(s) Start Date: 05/23/15 Status: Ordered Zofran 4 mg oral tablet 4 mg 1 tabs, Oral, q12hr, # 20 tabs, 0 Refill(s), Pharmacy: [facility] [id number], 1 tabs Oral q12hr Start Date: 04/13/15 Status: Ordered Zorvolex 35 mg oral capsule See Instructions, 1 CAPS ORAL DAILY,X14 DAYS,PRN: NEEDED FOR PAIN, # 14 caps, eRx: [facility] [id number], 1 CAPS ORAL DAILY,X14 DAYS,PRN: NEEDED FOR PAIN Start Date: 05/31/15 Status: Ordered Results No data available for this section Immunizations Vaccine Date Refusal Reason tetanus/diphth/pertuss (Tdap) adult/adol 08/22/10 poliovirus vaccine, inactivated 8/24/04 tetanus-diphth toxoids (Td) adult/adol 11/16/03 Procedures Procedure Date Related Diagnosis Body Site Arthrocentesis, aspiration and/or injection, 11/26/14 major joint or bursa (eg, shoulder, hip, knee, subacromial bursa); without ultrasound guidance sinus polypectomy/deviated septum 2006 H/O sinus surgery H/O total hysterectomy Social History Social History Type Response Smoking Status Never smoker Assessment and Plan Extracted from: Title: Ambulatory Patient Education Author: Daylin Isidro MD Date: Family Medicine Back Exercises Back exercises help treat and prevent back injuries. The goal of back exercises is to increase the strength of your abdominal and back muscles and the flexibility of your back. These exercises should be started when you no longer have back pain. Back exercises include: Pelvic Tilt. Lie on your back with your knees bent. Tilt your pelvis until the lower part of your back is against the floor. Hold this position 5 to 10 sec and repeat 5 to 10 times. Knee to Chest. Pull first 1 knee up against your chest and hold for 20 to 30 seconds, repeat this with the other knee, and then both knees. This may be done with the other leg straight or bent, whichever feels better. Sit-Ups or Curl-Ups. Bend your knees 90 degrees. Start with tilting your pelvis, and do a partial, slow sit-up, lifting your trunk only 30 to 45 degrees off the floor. Take at least 2 to 3 seconds for each sit-up. Do not do sit-ups with your knees out straight. If partial sit-ups are difficult, simply do the above but with only tightening your abdominal muscles and holding it as directed. Hip-Lift. Lie on your back with your knees flexed 90 degrees. Push down with your feet and shoulders as you raise your hips a couple inches off the floor; hold for 10 seconds, repeat 5 to 10 times. Back arches. Lie on your stomach, propping yourself up on bent elbows. Slowly press on your hands, causing an arch in your low back. Repeat 3 to 5 times. Any initial stiffness and discomfort should lessen with repetition over time. Shoulder-Lifts. Lie face down with arms beside your body. Keep hips and torso pressed to floor as you slowly lift your head and shoulders off the floor. Do not overdo your exercises, especially in the beginning. Exercises may cause you some mild back discomfort which lasts for a few minutes; however, if the pain is more severe, or lasts for more than 15 minutes, do not continue exercises until you see your caregiver. Improvement with exercise therapy for back problems is slow. See your caregivers for assistance with developing a proper back exercise program. Document Released: 04/18/2005 Document Revised: 06/02/2012 Document Reviewed: [facility] Patient Information 2015 [employer] [facility]. This information is not intended to replace advice given to you by your health care provider. Make sure you discuss any questions you have with your health care provider. Hip Bursitis Bursitis is a swelling and soreness (inflammation) of a fluid-filled sac (bursa) . This sac overlies and protects the joints. CAUSES Injury. Overuse of the muscles surrounding the joint. Arthritis. Gout. Infection. Cold weather. Inadequate warm-up and conditioning prior to activities. The cause may not be known. SYMPTOMS Mild to severe irritation. Tenderness and swelling over the outside of the hip. Pain with motion of the hip. If the bursa becomes infected, a fever may be present. Redness, tenderness , and warmth will develop over the hip. Symptoms usually lessen in 3 to 4 weeks with treatment, but can come back. TREATMENT If conservative treatment does not work, your caregiver may advise draining the bursa and injecting cortisone into the area. This may speed up the healing process. This may also be used as an initial treatment of choice. HOME CARE INSTRUCTIONS Apply ice to the affected area for 15-20 minutes every 3 to 4 hours while awake for the first 2 days. Put the ice in a plastic bag and place a towel between the bag of ice and your skin. Rest the painful joint as much as possible, but continue to put the joint through a normal range of motion at least 4 times per day. When the pain lessens , begin normal, slow movements and usual activities to help prevent stiffness of the hip. Only take [id number] or prescription medicines for pain, discomfort, or fever as directed by your caregiver. Use crutches to limit weight bearing on the hip joint, if advised. Elevate your painful hip to reduce swelling. Use pillows for propping and cushioning your legs and hips. Gentle massage may provide comfort and decrease swelling. SEEK IMMEDIATE MEDICAL CARE IF: Your pain increases even during treatment, or you are not improving. You have a fever. You have heat and inflammation over the involved bursa. You have any other questions or concerns. MAKE SURE YOU: Understand these instructions. Will watch your condition. Will get help right away if you are not doing well or get worse. Document Released: 08/31/2002 Document Revised: 06/02/2012 Document Reviewed: [facility] Patient Information 2015 [employer] [facility]. This information is not intended to replace advice given to you by your health care provider. Make sure you discuss any questions you have with your health care provider. Trochanteric Bursitis You have hip pain due to trochanteric bursitis. Bursitis means that the sack near the outside of the hip is filled with fluid and inflamed. This sack is made up of protective soft tissue. The pain from trochanteric bursitis can be severe and keep you from sleep. It can radiate to the buttocks or down the outside of the thigh to the knee. The pain is almost always worse when rising from the seated or lying position and with walking. Pain can improve after you take a few steps. It happens more often in people with hip joint and lumbar spine problems, such as arthritis or previous surgery. Very rarely the trochanteric bursa can become infected, and antibiotics and/or surgery may be needed. Treatment often includes an injection of local anesthetic mixed with cortisone medicine. This medicine is injected into the area where it is most tender over the hip. Repeat injections may be necessary if the response to treatment is slow. You can apply ice packs over the tender area for 30 minutes every 2 hours for the next few days. Anti-inflammatory and/or narcotic pain medicine may also be helpful. Limit your activity for the next few days if the pain continues. See your caregiver in 5-10 days if you are not greatly improved. SEEK IMMEDIATE MEDICAL CARE IF: You develop severe pain, fever, or increased redness. You have pain that radiates below the knee. EXERCISES STRETCHING EXERCISES - Trochantic Bursitis These exercises may help you when beginning to rehabilitate your injury. Your symptoms may resolve with or without further involvement from your physician, physical therapist or ict trainer. While completing these exercises, remember: Restoring tissue flexibility helps normal motion to return to the joints. This allows healthier, less painful movement and activity. An effective stretch should be held for at least 30 seconds. A stretch should never be painful. You should only feel a gentle lengthening or release in the stretched tissue. STRETCH Iliotibial Band On the floor or bed, lie on your side so your injured leg is on top. Bend your knee and grab your ankle. Slowly bring your knee back so that your thigh is in line with your trunk. Keep your heel at your buttocks and gently arch your back so your head, shoulders and hips line up. Slowly lower your leg so that your knee approaches the floor/bed until you feel a gentle stretch on the outside of your thigh. If you do not feel a stretch and your knee will not fall farther, place the heel of your opposite foot on top of your knee and pull your thigh down farther. Hold this stretch for seconds. Repeat times. Complete this exercise times per day. STRETCH Hamstrings, Supine Lie on your back. Loop a belt or towel over the ball of your foot as shown. Straighten your knee and slowly pull on the belt to raise your injured leg. Do not allow the knee to bend. Keep your opposite leg flat on the floor. Raise the leg until you feel a gentle stretch behind your knee or thigh. Hold this position for seconds. Repeat times. Complete this stretch times per day. STRETCH - Quadriceps, Prone Lie on your stomach on a firm surface, such as a bed or padded floor. Bend your knee and grasp your ankle. If you are unable to reach, your ankle or pant leg, use a belt around your foot to lengthen your reach. Gently pull your heel toward your buttocks. Your knee should not slide out to the side. You should feel a stretch in the front of your thigh and/or knee. Hold this position for seconds. Repeat times. Complete this stretch times per day. STRETCHING - Hip Flexors, Lunge Half kneel with your knee on the floor and your opposite knee bent and directly over your ankle. Keep good posture with your head over your shoulders. Tighten your buttocks to point your tailbone downward; this will prevent your back from arching too much. You should feel a gentle stretch in the front of your thigh and/or hip. If you do not feel any resistance, slightly slide your opposite foot forward and then slowly lunge forward so your knee once again lines up over your ankle. Be sure your tailbone remains pointed downward. Hold this stretch for seconds. Repeat times. Complete this stretch times per day. STRETCH - Adductors, Lunge While standing, spread your legs Lean away from your injured leg by bending your opposite knee. You may rest your hands on your thigh for balance. You should feel a stretch in your inner thigh. Hold for seconds. Repeat times. Complete this exercise times per day. Document Released: 04/18/2005 Document Revised: 06/02/2012 Document Reviewed: [facility] Patient Information 2015 [facility]. This information is not intended to replace advice given to you by your health care provider. Make sure you discuss any questions you have with your health care provider. No follow up information was provided.
--- OUTSIDE RECORDS SUMMARY | 2016-08-06 15:08 | XMS REPORT | Referral Summary ---
Author Author [facility] Organization [facility] Address Unknown Phone Unavailable Care Team Providers Care Commercial Manager Name Role Phone Maral Shipamn Primary Care Physician [phone] Encounter Date(s): 07/27/14 - 07/27/14 [facility] [address], [facility] [address] [place], [place] [address] Discharge Diagnosis: Mild sleep apnea [...] BID, # 60 tabs, 5 Refill(s), eRx: [facility] [id number], 1 TABS ORAL BID Start Date: 11/24/14 [...] PER 24 HR., # 9 tabs, eRx: [facility] [id number], 1 TAB PO AT ONSET OF HEADACHE MAY REPEAT ONCE IN 24 HOURS MAX OF 2 TAB PER 24 HR. Start Date: 12/17/14 Status: Ordered ProAir HFA 90 mcg/inh inhalation aerosol 2 puffs, Inhalation, q4hr, as needed for wheezing, # 8.5 g, 1 Refill(s), Pharmacy: [facility] [id number] Start Date: 09/15/14 Status: Ordered Singulair 10 mg oral tablet 10 mg 1 tabs, Oral, qPM, # 90 tabs, 0 Refill(s), Pharmacy: [facility] [id number], 1 tabs Oral qPM Start Date: 09/15/14 [...]
--- OUTSIDE RECORDS SUMMARY | 2016-08-06 15:08 | XMS REPORT | Referral Summary ---
Author Author [facility] Organization [facility] Address Unknown Phone Unavailable Care Team Providers Care Auto Glass Installer Name Role Phone Laquitamireya Maral Primary Care Physician [phone] Encounter [facility] Date(s): 01/18/15 - 01/18/15 [facility] [address] [place], [place] [address] Discharge Diagnosis: Primary osteoarthritis of left hip [...] BID, # 60 tabs, 5 Refill(s), eRx: [facility] 44524, 1 TABS ORAL BID Start Date: 11/24/14 [...] PER 24 HR., # 9 tabs, eRx: [facility] [id number], 1 TAB PO AT ONSET OF HEADACHE MAY REPEAT ONCE IN 24 HOURS MAX OF 2 TAB PER 24 HR. Start Date: 05/05/15 Status: Ordered ProAir HFA 90 mcg/inh inhalation aerosol 2 puffs, Inhalation, q4hr, as needed for wheezing, # 8.5 g, 1 Refill(s), Pharmacy: [facility] [id number] Start Date: 09/15/14 Status: Ordered Zofran 4 mg oral tablet 4 mg 1 tabs, Oral, q12hr, # 20 tabs, 0 Refill(s), Pharmacy: [facility] [id number], 1 tabs Oral q12hr Start Date: 04/13/15 Status: Ordered Zorvolex 35 mg oral capsule See Instructions, TAKE 1 CAPSULE BY MOUTH EVERY DAY FOR 14 DAYS NEEDED FOR PAIN, # 30 caps, 0 Refill(s), Pharmacy: [facility] [id number], TAKE 1 CAPSULE BY MOUTH EVERY DAY FOR 14 DAYS NEEDED FOR PAIN Start Date: 07/20/15 Status: Ordered Results No data available for [...] and Plan Extracted from: Title: Office Visit Note Author: Rudy Paul MD Date: 01/18/15 Assessment/Plan Primary osteoarthritis of left hip 50-year-old female with bilateral hip osteoarthrosis. I used her x-rays to illustrate to her what's going on with her hips. She has decreased joint space on both sides as well as some early osteophytes. We talked about operative and nonoperative means of treatment. She has a ready taking quite a bit of anti-inflammatory medication. At some pointin the future she most likely will need a hip replacement. I gave her a booklet on this as well as one on arthritis. We talked about nonoperative means of treatment such as injections and she wanted to try this. Procedure note: After informed consent was obtained, the patient was taken to the fluoroscopy suite. The patient's left anterior hip area was prepped with Betadine, and the skin and subcutaneous tissues were anesthetized with one percent lidocaine using a 25-gauge needle. Under fluoroscopic guidance, a 20- gauge spinal needle was then passed down through the anterior capsule and into the hip joint. Contact with the bone was noted. The left hip joint was then injected with half percent Marcaine and 80 mg of Kenalog. The injection site was then dressed with a sterile dressing. The patient tolerated the procedure well, and is to call our office if no relief is obtained. Lumbar spondylosis and possibly somesciatica. We looked over spine x-rays which show sacralization of L5. She may need to have further evaluation of thisif she continues to have radicular type of symptoms.
--- OUTSIDE RECORDS SUMMARY | 2016-08-06 15:08 | XMS REPORT | Referral Summary ---
Author Author [facility] [place] Organization [facility] [place] Address Unknown Phone Unavailable Care Team Providers Care Tipple Mechanic Name Role Phone Maral Shipman Primary Care Physician [phone] Encounter Date(s): 08/03/14 - 08/03/14 [facility], [place] [address] [address] [place] [address] Discharge Diagnosis: Mild sleep apnea Discharge [...] BID, # 60 tabs, 5 Refill(s), eRx: [facility] [id number], 1 TABS ORAL BID Start Date: 11/24/14 [...] HR., # 9 tabs, 1 Refill(s), eRx: [facility] 66811, 1 TAB PO AT ONSET OF HEADACHE MAY REPEAT ONCE IN 24 HOURS MAX OF 2 TAB PER 24 HR. Start Date: 02/01/15 Status: Ordered ProAir HFA 90 mcg/inh inhalation aerosol 2 puffs, Inhalation, q4hr, as needed for wheezing, # 8.5 g, 1 Refill(s), Pharmacy: [facility] [id number] Start Date: 09/15/14 Status: Ordered Singulair 10 mg oral tablet 10 mg 1 tabs, Oral, qPM, # 90 tabs, 0 Refill(s), Pharmacy: [facility] [id number], 1 tabs Oral qPM Start Date: 09/15/14 [...] Document Revised: 11/11/2013 Document Reviewed: [facility] Patient Information 2014 [employer]. No follow up information was provided. Extracted [...]
--- OUTSIDE RECORDS SUMMARY | 2016-08-06 15:08 | XMS REPORT | Referral Summary ---
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 Role Phone Maral Shipman Primary Care Physician [phone] Encounter VC Date(s): 10/10/15 - 10/10/15 [facility] [address] [place] [address] [place] Discharge Disposition: 01-Home or Self Care Attending Physician: Srinivas Shipman MD Admitting Physician: Srinivas Shipman MD Vital Signs Most recent to 1 oldest [Reference Range]: Blood Pressure 150/110 mmHg [90-140/60-90 mmHg] *HI* (10/10/15 1:26 PM) Problem List Condition Effective Dates Status [...] Allergies Medications atenolol 25 mg oral tablet 25 mg 1 tabs, Oral, BID, # 180 tabs, 0 Refill(s), Pharmacy: [id number], 1 tabs Oral BID Start Date: 10/10/15 Status: Ordered Ativan 0.5 mg oral tablet 0.5 mg 1 tabs, Oral, Bedtime (once a day), [facility], # 10 tabs, 0 Refill(s) Start Date: 05/23/15 Status: Ordered ibuprofen 200 mg oral tablet 800 mg 4 tabs, Oral, q6hr, 0 Refill(s) Start Date: 01/18/15 Status: Ordered predniSONE 20 mg oral tablet 20 mg 1 tabs, Oral, Daily, X 5 days, # 5 tabs, 0 Refill(s), Pharmacy: [id number], 1 tabs Oral Daily,x5 days Start Date: 10/10/15 Stop Date: 10/15/15 Status: Ordered ProAir HFA 90 mcg/inh inhalation aerosol 2 puffs, Inhalation, q4hr, as needed for wheezing, # 8.5 g, 1 Refill(s), Pharmacy: [id number] Start Date: 09/15/14 Status: Ordered SUMAtriptan 100 mg oral tablet See Instructions, TAKE 1 TABLET BY MOUTH AT ONSET OF HEADACHE. MAY REPEAT ONCE IN 24 HOURS. MAX OF 2 TABLET DAILY, # 9 tabs, 1 Refill(s), eRx: [facility] [id number], TAKE 1 TABLET BY MOUTH AT ONSET OF HEADACHE. MAY REPEAT ONCE IN 24 HOURS. MAX OF... Start Date: 08/18/15 Status: Ordered Zofran 4 mg oral tablet 4 mg 1 tabs, Oral, q12hr, # 20 tabs, 0 Refill(s), Pharmacy: [facility] [id number], 1 tabs Oral q12hr Start Date: 04/13/15 Status: Ordered Zorvolex 35 mg oral capsule See Instructions, TAKE 1 CAPSULE BY MOUTH EVERY DAY FOR 14 DAYS NEEDED FOR PAIN, # 30 caps, 0 Refill(s), Pharmacy: [facility] [id number], TAKE 1 CAPSULE BY MOUTH EVERY DAY [...] Author: Srinivas Shipman MD Date: Family Medicine Back Pain, Adult Back pain is very common in adults.The cause of back pain is rarely dangerous and the pain often gets better over time.The cause of your back pain may not be known. Some common causes of back pain include: Strain of the muscles or ligaments supporting the spine. Wear and tear (degeneration) of the spinal disks. Arthritis. Direct injury to the back. For many people, back pain may return. Since back pain is rarely dangerous, most people can learn to manage this condition on their own. HOME CARE INSTRUCTIONS Watch your back pain for any changes. The following actions may help to lessen any discomfort you are feeling: Remain active. 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 Do not sit, drive, or photofinishing laboratory worker one place for more than 30 minutes at a time. Take short walks on even surfaces as soon as you are able.Try to increase the length of time you walk each day. Exercise regularly as directed by your health care provider. Exercise helps your back heal faster. It also helps avoid future injury by keeping your muscles strong and flexible. Do not stay in bed.Resting more than 12 days can delay your recovery. Pay attention to your body when you bend and lift. The most comfortable positions are those that put less stress on your recovering back. Always use proper lifting techniques, including: Bending your knees. Keeping the load close to your body. Avoiding twisting. Find a comfortable position to sleep. Use a firm mattress and lie on your side with your knees slightly bent. If you lie on your back, put a pillow under your knees. Avoid feeling anxious or stressed.Stress increases muscle tension and can worsen back pain.It is important to recognize when you are anxious or stressed and learn ways to manage it, such as with exercise. Take medicines only as directed by your health care provider. Over-the- counter medicines to reduce pain and inflammation are often the most helpful. Your health care provider may prescribe muscle relaxant drugs.These medicines help dull your pain so you can more quickly return to your normal activities and healthy exercise. Apply ice to the injured area: Put ice in a plastic bag. Place a towel between your skin and the bag. Leave the ice on for 20 minutes, 23 times a day for the first 23 days. After that, ice and heat may be alternated to reduce pain and spasms. Maintain a healthy weight. Excess weight puts extra stress on your back and makes it difficult to maintain good posture. SEEK MEDICAL CARE IF: You have pain that is not relieved with rest or medicine. You have increasing pain going down into the legs or buttocks. You have pain that does not improve in one week. You have night pain. You lose weight. You have a fever or chills. SEEK IMMEDIATE MEDICAL CARE IF: You develop new bowel or bladder control problems. You have unusual weakness or numbness in your arms or legs. You develop nausea or vomiting. You develop abdominal pain. You feel faint. This information is not intended to replace advice given to you by your health care provider. Make sure you discuss any questions you have with your health care provider. Document Released: 03/11/2006 Document Revised: 04/01/2015 Document Reviewed: [facility] Patient Information 2016 [employer]. No follow up information was provided. Extracted from: Title: Office Visit Note Author: Srinivas Shipman MD Date: 10/10/15 Assessment/Plan Acute URI Zpack and prednisone 20mg po daily for five days was given. 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 Benign essential hypertension This issue was reviewed, appears stable, and current therapy continued except as mentioned. Appropriate lab was reviewed from the most recent appropriate entry and lab was ordered if needed in the cpoe /nursing orders, and follow up recommended generally in 90 days and no later then six months. The patient had an elevated blood pressure reading and is to monitor their bp and call with a report if consistently > 140/90. Restart atenolol today, refills given if needed. Benign headache Demerol 50mg IM w/phen 50mg IM. She lives about 8 blocks away and is to go right home. She has a roommate to monitor her status. Chronic back pain This issue was reviewed, appears stable, and current therapy continued except as mentioned. Appropriate lab was reviewed from the most recent appropriate entry and lab was ordered if needed in the cpoe/nursing orders, and follow up recommended generally in 90 days and no later then six months. Chronic insomnia This issue was reviewed, appears stable, and current therapy continued except as mentioned. Appropriate lab was reviewed from the most recent appropriate entry and lab was ordered if needed in the cpoe/nursing orders, and follow up recommended generally in 90 days and no later then six months. GERD without esophagitis This issue was reviewed, appears stable, and current therapy continued except as mentioned. Appropriate lab was reviewed from the most recent appropriate entry and lab was ordered if needed in the cpoe/nursing orders, and follow up recommended generally in 90 days and no later then six months.
--- OUTSIDE RECORDS SUMMARY | 2016-08-06 15:08 | XMS REPORT | Referral Summary ---
Author Author [facility] Organization [facility] Address Unknown Phone Unavailable Care Team Providers Care Security Specialist Name Role Phone Maral Shipman Primary Care Physician [phone] Encounter VC Date(s): 08/13/14 - 08/13/14 [facility] [address] [place] [address]- Discharge Disposition: 01-Home or Self Care Attending Physician: Srinivas Shipman MD Admitting Physician: Srinivas Shipman MD Vital Signs Most recent to 1 oldest [Reference Range]: Blood Pressure 130/90 mmHg [90-140/60-90 mmHg] (08/13/14 11:05 AM) Problem List Condition Effective Dates Status [...] BID, # 60 tabs, 5 Refill(s), eRx: [facility], 1 TABS ORAL BID Start Date: 11/24/14 [...] HR., # 9 tabs, 1 Refill(s), eRx: [id number], 1 TAB PO AT ONSET OF HEADACHE MAY REPEAT ONCE IN 24 HOURS MAX OF 2 TAB PER 24 HR. Start Date: 02/01/15 Status: Ordered ProAir HFA 90 mcg/inh inhalation aerosol 2 puffs, Inhalation, q4hr, as needed for wheezing, # 8.5 g, 1 Refill(s), Pharmacy: [id number] Start Date: 09/15/14 Status: Ordered Singulair 10 mg oral tablet 10 mg 1 tabs, Oral, qPM, # 90 tabs, 0 Refill(s), Pharmacy: [facility] [id number], 1 tabs Oral qPM Start Date: 09/15/14 [...] Author: Srinivas Shipman MD Date: Family Medicine Agoraphobia Agoraphobia is a type of anxiety disorder. Anxiety is intense fear and worry. Agoraphobia is an intense fear of losing control or having a panic attack while in public. During a panic attack, you may experience the following things: Dizziness. Shortness of breath. Chest pain. Sweating. Nausea. Diarrhea. Choking sensation. Trembling or shaking. Fear of going crazy. Fear of dying. You may fear not being able to escape a situation, being embarrassed, or not having help available to you. This fear can make it difficult to be in crowds, to travel, or even to leave the house. The panic may seem like more than you can cope with. RISK FACTORS Agoraphobia can affect people at most any age. It usually starts during the teenage years or in young adulthood. Women have agoraphobia more often than men. No one knows exactly what causes agoraphobia. However, there are certain risk factors that are associated with agoraphobia: Extreme stress, brought on by traumatic situations, such as physical or sexual abuse. History of drug or alcohol abuse. Family history of anxiety. SYMPTOMS Fear of leaving home. Fear of being someplace where you cannot get out quickly. Feelings of helplessness. Fear of being alone. DIAGNOSIS To determine if you have agoraphobia, your caregiver will probably ask you about : Fears you may have. Changes in your behavior because of these fears. Drug and alcohol use. TREATMENT Psychotherapy and medicine can help people with agoraphobia. Medicine can work immediately to reduce symptoms of panic or reduce general levels of anxiety, whereas psychotherapy has been demonstrated to show better long-term outcomes. They often are used together. Psychotherapy may include: Cognitive behavioral therapy. This type of therapy helps you figure out what causes your fears. Your fear might be caused by your thoughts or certain situations. The therapy will then help you learn ways to reduce these fears. Exposure therapy. Often, the more fear is avoided, the greater it becomes. Exposure therapy helps you face the things that cause your fears by learning relaxation techniques while you approach what you fear. Meditation and deep breathing are two examples. Medicines for agoraphobia may include: Antidepressants. These drugs affect certain chemicals in your brain. Selective serotonin reuptake inhibitors are one type that can decrease general levels of anxiety and help prevent panic attacks. Benzodiazepines. These drugs block feelings of anxiety and panic. However , prolonged use can lead to physiological and psychological dependence and can cause withdrawal symptoms when discontinued. Beta-blockers. These medicines can keep you from getting excited. They have an effect on the nerve cells that cause that feeling. The drugs help you feel less tense and anxious. HOME CARE INSTRUCTIONS Take medicine as directed by your caregiver. Follow the directions carefully. Make sure your caregiver knows about all other medicines you take. Do not start any new medicine unless your caregiver says it is okay. Do not take more medicine than is prescribed. Alert your caregiver if you plan to discontinue a medicine that he or she has prescribed to you for anxiety. Try not to avoid fearful situations. Avoidance can increase your fears and could lead to a fear of leaving your home. Learn relaxation techniques. Consider taking a class in meditation or deep breathing to help you stay calm. Consider joining a support group. Ask your caregiver for a list of groups in your area. Do not drink alcohol or use drugs, especially if you are taking medicine for anxiety. SEEK MEDICAL CARE IF: You are missing major life activities, such as school or work, because of your fears. You have symptoms of depression, such as depressed mood, loss of interest, or negative feelings about yourself. SEEK IMMEDIATE MEDICAL CARE IF: You cannot leave your home. You have trouble breathing. You have chest pain. You think about hurting yourself or someone else. FOR MORE INFORMATION Anxiety [employer] Association of [place]: www.adaa.org Document Released: 08/01/2011 Document Revised: 09/09/2012 Document Reviewed: ExitCare Patient Information 2014 [employer]. No follow up information was provided. Extracted from: Title: Office Visit Note Author: Srinivas Shipman MD Date: 08/13/14 Assessment/Plan Acute low back pain Flexeril 10mg1/2-1 po tid prn, may cause sedation, mobic 7.5mg po bid prn, no other nsaids. 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 Xrays if not improving. Benign essential hypertension This issue is stable and appropriate refills, lab, and f/u have been discussed. The patient reports their blood pressure has been stable at home and is not having any significant or related problems. There has been no chest pain, chest pressure, soa/[place]. Benign headache This issue is stable and appropriate refills, lab, and f/u have been discussed. Fear of flying Refill ativan. Use as directed. NOELLE (generalized anxiety disorder) The patient's issue is nearly or completely resolved. There is no further issues or testing desired by them at this time. She stopped her celexa since she is doing well. Orders: cyclobenzaprine, 1/2-1 tab, Oral, TID, as needed for spasm, # 60 tabs , 0 Refill(s), Pharmacy: [facility] [id number], 1/2-1 tab Oral TID,PRN:as needed for spasm LORazepam, 0.5 mg 1 tabs, Oral, Bedtime (once a day), # 10 tabs, 0 Refill(s) meloxicam, 7.5 mg 1 tabs, Oral, q12hr, # 60 tabs, 0 Refill(s), Pharmacy: [facility] [id number], 1 tabs Oral q12hr
--- OUTSIDE RECORDS SUMMARY | 2016-08-06 15:08 | XMS REPORT | Referral Summary ---
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 Phone Maral Shipman Primary Care Physician [phone] Encounter VC Date(s): 05/23/15 - 05/23/15 [facility] Family [address] [place] [address] Discharge Disposition: 01-Home or Self Care Attending Physician: Srinivas Shipman MD Admitting Physician: Srinivas Shipman MD Vital Signs Most recent to 1 oldest [Reference Range]: Blood Pressure 130/90 mmHg [90-140/60-90 mmHg] (05/23/15 3:36 PM) Problem List Condition Effective Dates Status [...] BID, # 60 tabs, 5 Refill(s), eRx: [facility] 25309, 1 TABS ORAL BID Start Date: 11/24/14 Status: Ordered Ativan 0.5 mg oral tablet 0.5 mg 1 tabs, Oral, Bedtime (once a day), [facility], # 10 tabs, 0 Refill(s) Start Date: 05/23/15 Status: Ordered ibuprofen 200 mg oral tablet 800 mg 4 tabs, Oral, q6hr, 0 Refill(s) Start Date: 01/18/15 Status: Ordered Imitrex 100 mg oral tablet See Instructions, 1 TAB PO AT ONSET OF HEADACHE MAY REPEAT ONCE IN 24 HOURS MAX OF 2 TAB PER 24 HR., # 9 tabs, [facility]: [facility], 1 TAB PO AT ONSET OF HEADACHE MAY REPEAT ONCE IN 24 HOURS MAX OF 2 TAB PER 24 HR. Start Date: 05/05/15 Status: Ordered ProAir HFA 90 mcg/inh inhalation aerosol 2 puffs, Inhalation, q4hr, as needed for wheezing, # 8.5 g, 1 Refill(s), [facility] Start Date: 09/15/14 Status: Ordered Singulair 10 mg oral tablet 10 mg 1 tabs, Oral, qPM, # 90 tabs, 0 Refill(s), Pharmacy: [facility] [id number], 1 tabs Oral qPM Start Date: 09/15/14 Status: Ordered traMADol 50 mg oral tablet 50 mg 1 tabs, Oral, q12hr, as needed for pain, [facility], # 60 tabs, 0 Refill(s) Start Date: 05/23/15 Status: Ordered Zofran 4 mg oral tablet 4 mg 1 tabs, Oral, q12hr, # 20 tabs, 0 Refill(s), [facility], 1 tabs Oral q12hr Start Date: 04/13/15 Status: Ordered Zorvolex 35 mg oral capsule 35 mg 1 caps, Oral, Daily, as needed for pain, X 14 days, # 14 caps, 0 Refill(s) , [facility], 1 caps Oral Daily,x14 days,PRN:as needed for pain Start Date: 05/23/15 Stop Date: 06/06/15 Status: Ordered Results No data available for [...] Srinivas Shipman MD Date: Family Medicine Back Exercises Back [...] with developing a proper back exercise program. This information is not intended to replace advice given to you by your health care provider. Make sure you discuss any questions you have with your health care provider. Document Released: 04/18/2005 Document Revised: 06/02/2012 Document Reviewed: ExitCare Patient Information 2015 [employer]. No follow up information was provided. Extracted from: Title: Office Visit Note Author: Srinivas Shipman MD Date: 05/23/15 Assessment/Plan Adult-onset obesity Diet and exercise as tolerated and feasible. Consider medication when interested. Benign essential hypertension This issue was reviewed, appears stable, and current therapy continued except as mentioned. Appropriate lab was reviewed from the most recent appropriate entry and lab was ordered if needed in the cpoe /nursing orders, and follow up recommended generally in 90 days and no later then six months. Benign headache This issue was reviewed, appears stable, and current therapy continued except as mentioned. Appropriate lab was reviewed from the most recent appropriate entry and lab was ordered if needed in the cpoe/nursing orders, and follow up recommended generally in 90 days and no later then six months. Chronic back pain Trial of ultram 50mg po bid prn, may cause sedation. Trial of zorvolex 35mg po daily and no othernsaids. IMPRESSION: Degenerative change of the hips. No acute abnormality is seen. The left hip is stable compared to a prior exam from 11/04/14. [1] MPRESSION: Mild multilevel degenerative disc disease with multiple areas of slight effacement of ventral thecal sac and minimal neural foraminal encroachment as detailed above. There is however no focal disc extrusion or evidence of high-grade spinal stenosis. [2] A work/school note was offered and deferred by the patient. Chronic insomnia This issue was reviewed, appears stable, and current therapy continued except as mentioned. Appropriate lab was reviewed from the most recent appropriate entry and lab was ordered if needed in the cpoe/nursing orders, and follow up recommended generally in 90 days and no later then six months. Fear of flying Refill ativan. May cause sedation. GERD without esophagitis This issue was reviewed, appears stable, and current therapy continued except as mentioned. Appropriate lab was reviewed from the most recent appropriate entry and lab was ordered if needed in the cpoe/nursing orders, and follow up recommended generally in 90 days and no later then six months. Primary osteoarthritis of left hip This issue was reviewed, appears stable, and current therapy continued except as mentioned. Appropriate lab was reviewed from the most recent appropriate entry and lab was ordered if needed in the cpoe/nursing orders, and follow up recommended generally in 90 days and no later then six months. See above.
--- OUTSIDE RECORDS SUMMARY | 2016-08-06 15:08 | XMS REPORT | Referral Summary ---
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 Start Date: 02/01/15 Status: Ordered ProAir HFA 90 mcg/inh inhalation aerosol 2 puffs, Inhalation, q4hr, as needed for wheezing, # 8.5 g, 1 Refill(s), Pharmacy: [id number] Start Date: 09/15/14 Status: Ordered Singulair 10 mg oral tablet 10 mg 1 tabs, Oral, qPM, # 90 tabs, 0 Refill(s), Pharmacy: [id number], 1 tabs Oral qPM Start Date: 09/15/14 [...]
--- OUTSIDE RECORDS SUMMARY | 2016-08-06 15:08 | XMS REPORT | Referral Summary ---
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 Name Role Phone Maral Shipman Primary Care Physician [phone] Encounter VC Date(s): 04/13/15 - 04/13/15 [facility] [address] [place] [id number]- Discharge Disposition: 01-Home or Self Care Attending Physician: Srinivas Shipman MD Admitting Physician: Srinivas Shipman MD Vital Signs Most recent to 1 oldest [Reference Range]: Blood Pressure 130/90 mmHg [90-140/60-90 mmHg] (04/13/15 2:40 PM) Problem List Condition Effective Dates Status [...] BID, # 60 tabs, 5 Refill(s), eRx: [id number], 1 TABS ORAL BID Start Date: 11/24/14 Status: Ordered Ativan 0.5 mg oral tablet 0.5 mg 1 tabs, Oral, Bedtime (once a day), [facility], # 10 tabs, 0 Refill(s) Start Date: 03/09/15 Status: Ordered ibuprofen 200 mg oral tablet 800 mg 4 tabs, Oral, q6hr, 0 Refill(s) Start Date: 01/18/15 Status: Ordered Imitrex 100 mg oral tablet See Instructions, 1 TAB PO AT ONSET OF HEADACHE MAY REPEAT ONCE IN 24 HOURS MAX OF 2 TAB PER 24 HR., # 9 tabs, 1 Refill(s), eRx: [id number], 1 TAB PO AT ONSET OF HEADACHE MAY REPEAT ONCE IN 24 HOURS MAX OF 2 TAB PER 24 HR. Start Date: 02/01/15 Status: Ordered predniSONE 20 mg oral tablet 20 mg 1 tabs, Oral, Daily, # 5 tabs, 0 Refill(s), Pharmacy: [facility] [id number], 1 tabs Oral Daily Start Date: 04/13/15 Stop Date: 04/17/15 Status: Ordered ProAir HFA 90 mcg/inh inhalation aerosol 2 puffs, Inhalation, q4hr, as needed for wheezing, # 8.5 g, 1 Refill(s), Pharmacy: [facility] [id number] Start Date: 09/15/14 Status: Ordered Singulair 10 mg oral tablet 10 mg 1 tabs, Oral, qPM, # 90 tabs, 0 Refill(s), Pharmacy: [facility] [id number], 1 tabs Oral qPM Start Date: 09/15/14 Status: Ordered Zofran 4 mg oral tablet 4 mg 1 tabs, Oral, q12hr, # 20 tabs, 0 Refill(s), Pharmacy: [id number], 1 tabs Oral q12hr Start Date: 04/13/15 [...] Patient Education Author: Srinivas Shipman MD Date: Emergency Medicine General Headache Without Cause A headache is pain or discomfort felt around the head or neck area. The specific cause of a headache may not be found. There are many causes and types of headaches. A few common ones are: Tension headaches. Migraine headaches. Cluster headaches. Chronic daily headaches. HOME CARE INSTRUCTIONS Keep all follow-up appointments with your caregiver or any specialist referral. Only take [id number] or prescription medicines for pain or discomfort as directed by your caregiver. Lie down in a dark, quiet room when you have a headache. Keep a headache journal to find out what may trigger your migraine headaches. For example, write down: What you eat and drink. How much sleep you get. Any change to your diet or medicines. Try massage or other relaxation techniques. Put ice packs or heat on the head and neck. Use these 3 to 4 times per day for 15 to 20 minutes each time, or as needed. Limit stress. Sit up straight, and do not tense your muscles. Quit smoking if you smoke. Limit alcohol use. Decrease the amount of caffeine you drink, or stop drinking caffeine. Eat and sleep on a regular schedule. Get 7 to 9 hours of sleep, or as recommended by your caregiver. Keep lights dim if bright lights bother you and make your headaches worse. SEEK MEDICAL CARE IF: You have problems with the medicines you were prescribed. Your medicines are not working. You have a change from the usual headache. You have nausea or vomiting. SEEK IMMEDIATE MEDICAL CARE IF: Your headache becomes severe. You have a fever. You have a stiff neck. You have loss of vision. You have muscular weakness or loss of [...] Released: 03/11/2006 Document Revised: 06/02/2012 Document Reviewed: ExitCare Patient Information 2015 [place], [place]. This information is not intended to replace advice given to you by your health care provider. Make sure you discuss any questions you have with your health care provider. No follow up information was provided. Extracted from: Title: Office Visit Note Author: Srinivas Shipman MD Date: 04/13/15 Assessment/Plan Acute URI Zpack and prednisone 20mg po daily for five days was given. Benign headache Demerol 50mg IM w/phen 50mg IM for DIALLO. 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 To ER if worse. Nausea & vomiting Zofran 4mg OMT po q12 prn at her request.
[2016-08-06 15:19] VITALS: Ht 172.7 cm; Wt 84.9 kg
--- NOTE | 2016-08-06 15:42 | ERPDOC ---
Departure Disposition Decision Date: August 06, 2016 Disposition Decision Time: 18:12 Disposition: 01 DISCHARGED HOME, SELF-CARE Impression Impression Impression: Primary Impression: Upper abdominal pain Severity: Moderate Condition: Improved Seen By: Mid-level only Referrals: ROSALIA ENCARNACION MD (Family) Patient Instructions: Acute Abdominal Pain (ED) Problems/Meds/Labs Reviewed?: Yes Medications reviewed and manag: Yes Additional Instructions: Your gallbladder ultrasound did not show any stones in your gallbladder. You symptoms may be from the food you ate today or your may have a viral gastroenteritis (stomach bug). You may dissolved one tab of Zofran 4mg on your tongue every 4-6 hours for or use a 25mg promethazine rectal suppository for nausea and vomiting. You may take norco 5/325mg 1-2 tabs every 4-6 hours as needed for abdominal pain. This medication may cause drowsiness so avoid operating heavy machinery, driving or drinking alcohol while taking. Clear liquid diet this evening only, advance diet tomorrow as tolerated. If your symptoms are not improving in the next 1-2 days please follow with your PCP for reevaluation, sooner if worsening symptoms. Follow treatment plan. Follow up care ordered?: Yes Mental Status: Alert, Oriented Scripts Hydrocodone/Acetaminophen (Ellerbe 5-325 Tablet) 5-325 Tablet 1-2 TAB PO Q4-6HPRN Y for PAIN, #20 TAB Prov: CESAR PALOMARSE APRN 08/06/16 Promethazine HCl (Promethazine HCl) 25 Mg Supp.rect 1 SUPP RECTALLY Q6HPRN for NAUSEA &/OR VOMITING, #15 Prov: CESAR PALOMARES APRN 08/06/16 Ondansetron (Zofran Odt) 4 Mg Tab.rapdis 4 MG PO Q4-6HPRN, #15 TAB Oral Disintegrating Tablet Prov: CESAR PALOMARES PHOTO STYLIST 08/06/16 HPI - Abdominal Pain General Chief Complaint: Abdominal Pain Stated Complaint: SEVERE ABD PAIN Time Seen by Provider: 15:30 Source: patient HPI - Abdominal Pain Initial Comments 51-year-old female presents to ER with epigastric pain, nausea and vomiting. States that she ate at [employer] for lunch today and within 20-30 minutes she began having severe upper abdominal pain and vomiting. Patient is concerned she has food poisoning. Patient denies fever/chills, sinus congestion, cough, dysuria or know sick contacts. Pain Scale: Now: 11/01 Location: epigastric Radiation: no radiation Modifying Factors: WORSE WITH: palpation Associated Symptoms: nausea/vomiting, DENIES: back pain, chest pain, diaphoresis, fatigue, fever/chills, headache, heartburn, rash, shortness of breath, swelling/mass in abdomen, syncope, weakness Allergies: Coded Allergies: No Known Drug Allergies (Verified Allergy, Unknown, 11/07/14) Past History Past Medical History ENMT: allergies Cardiac: DENIES: angina Respiratory: asthma GI: DENIES: ulcers Female: DENIES: renal insufficiency Neurological: migraines Musculoskeletal: neck pain Psychological: bipolar Surgical History Reproductive/: hysterectomy Family History Family PMH: FOUND: other (noncontributory) Vaccines Hx Influenza Vaccination: No (REFUSES) Hx Pneumococcal Vaccination: No Hx Tetanus Diptheria: Yes Social History Sexuality: male partner Review of Systems Constitutional Constitutional: DENIES: chills, dizziness, fever, weakness Eyes General: DENIES: erythema, exudate Lids/Accessories: DENIES: erythema, swelling ENMT Ears: DENIES: pain Sinuses: DENIES: congestion, rhinorrhea Mouth/Throat: DENIES: sore throat Cardiovascular Cardiac: DENIES: chest pain, murmur Rhythm/Rate: DENIES: palpitations Pulmonary Respiratory: DENIES: cough, dyspnea GI Upper Abdomen: nausea, pain, see HPI, vomiting Lower Abdomen: DENIES: diarrhea, pain General: DENIES: dysuria, pain Musculoskeletal General: DENIES: joint pain, pain, tenderness Integumentary Skin: DENIES: color change, itching, rash Neurological General: DENIES: ataxia, change in strength, numbness, paralysis/paresis, weakness Psychiatric Psychiatric: DENIES: anxiety, depression, nervousness Physical Exam General General Nourishment: well nourished, well developed, adult Vitals and Pain First Documented Vital Signs Date Time Temp Pulse Resp B/P Pulse Ox O2 Delivery O2 Flow Rate FiO2 08/06/16 15:19 98.0 68 20 137/77 97 Room Air Weight: Kilograms: 84.900 Height (feet): 5 Height (inches): 8.00 Triage Pain Scale: Eyes (brief) Eyes Brief: found: EOMI ENMT (brief) ENMT Brief: FOUND: mucosa moist, NOT FOUND: nasal exudate, nasal swelling Neck (brief) Neck: FOUND: trachea midline Respiratory (brief) Respiratory: FOUND: clear all watson, equal bilaterally, symmetrical Cardiovascular (brief) Cardiac: FOUND: regular rate Abdomen Inspection: NOT FOUND: distention Palpation: FOUND: Arriola's sign, involuntary guarding, soft, tender ( epgiastric area and RUQ TTP), voluntary guarding, NOT FOUND: Obturator sign, Psoas sign, Rosving's sign, hepatomegaly, splenomegaly Auscultation: FOUND: normoactive (x4) Musculoskeletal (brief) Musculoskeletal Brief: NOT FOUND: deformity, loss of motion Integumentary (brief) Integumentary Brief: FOUND: dry, pink, warm Neurologic (brief) Neurological Brief: FOUND: gait w/o gross def to obs, motor-no gross deficits, sensory-no gross deficits Psychiatric (brief) Psychiatric Brief: FOUND: alert, normal affect, oriented Differential Diagnoses Considering: Biliary Colic, Bowel Obstruction, Cholecystitis, Gastroenteritis, Ileus, Pancreatitis, Ulcer Progress Results/Orders Orders Procedure Category Date Status Time Iv Lock (Ed Only) EDM 08/06/16 Transmitted 15:48 Nothing By Mouth (Ed EDM 08/06/16 Transmitted Only) 15:48 Cbc W/Auto LAB 08/06/16 Complete Diff-Reflex Manual 15:48 Cmp - Comprehensive LAB 08/06/16 Complete Metabolic 15:48 Lipase LAB 08/06/16 Complete 15:48 Ua, Dip Wreflex LAB 08/06/16 Complete Microsc & Systems Programmer Analyst 15:48 Hydromorphone PHA 08/06/16 Complete (Dilaudid) 16:00 Ondansetron Inj PHA 08/06/16 Complete (Zofran) 16:00 Normal Saline (Normal PHA 08/06/16 In Process Saline Iv) 16:00 Us Gallbladder US 08/06/16 Taken Hydromorphone PHA 08/06/16 Complete (Dilaudid) 17:15 Prochlorperazine PHA 08/06/16 Complete (Compazine) 17:45 Metoclopramide PHA 08/06/16 Complete (Reglan) 18:15 Lab Results Laboratory Tests Test 08/06/16 15:44 08/06/16 16:51 White Blood Count 11.0T/MM3 Red Blood Count 5.47M/MM3 Hemoglobin 16.0GM/DL Hematocrit 46.6% Mean Corpuscular Volume 85.2UM3 Mean Corpuscular Hemoglobin 29.3UUG Mean Corpuscular Hemoglobin Concent 34.3GM/DL RDW Standard Deviation 38.9FL Platelet Count 282T/MM3 Mean Platelet Volume 10.9UM3 Immature Granulocyte % (Auto) 0.1% Neutrophils (%) (Auto) 82.9% Lymphocytes (%) (Auto) 7.9% Monocytes (%) (Auto) 6.9% Eosinophils (%) (Auto) 2.0% Basophils (%) (Auto) 0.2% Absolute Immature Granulocyte (auto 0.01T/MM3 Absolute Neutrophils (auto) 9.1T/MM3 Absolute Lymphocytes (auto) 0.9T/MM3 Absolute Monocytes (auto) 0.8T/MM3 Absolute Eosinophils (auto) 0.2T/MM3 Absolute Basophils (auto) 0.0T/MM3 Turbidity < 20 Sodium Level 149MEQ/L Potassium Level 3.5MEQ/L Chloride Level 103MEQ/L Carbon Dioxide Level 30MEQ/L Anion Gap 16MEQ/L Blood Urea Nitrogen 20.0MG/DL Creatinine 0.7MG/DL Glomerular Filtration Rate Calc 88 BUN/Creatinine Ratio 29RATIO Glucose Level 97MG/DL Calculated Osmolality 289MOSM/KG Calcium Level 9.7MG/DL Total Bilirubin 1.80MG/DL Icterus Index < 2 Aspartate Amino Transf (AST/SGOT) 30U/L Alanine Aminotransferase (ALT/SGPT) 45U/L Alkaline Phosphatase 89U/L Total Protein 8.2G/DL Albumin 4.8G/DL Globulin 3.4G/DL Albumin/Globulin Ratio 1.4RATIO Lipase 99U/L Chemistry Specimen Hemolysis 26 Urine Collection Type Cleancatch-midstream Urine Color Yellow Urine Turbidity Clear Urine pH 5.5 Urine Specific [place] >=1.030 Urine Protein Negative Urine Glucose (UA) Negative Urine Ketones Negative Urine Blood Trace-intact Urine Nitrite Negative Urine Bilirubin Negative Urine Urobilinogen 0.2EU/DL Urine Leukocyte Esterase Negative Urinalysis Comment Microscopic not ind. Medications Current ED Medications Hydromorphone HCl (Dilaudid) 1 mg O ONCE IV Last administered on 08/06/16t 16: 07; Start 08/06/16 at 16:00; Stop 5/15/17 at 16:01; Status DC Ondansetron HCl 4 mg 4 mg O ONCE IV Last administered on 08/06/16 16:07; Start 08/06/16 at 16:00; Stop 08/06/16 at 16:01; Status DC Sodium Chloride (Normal Saline IV) 1,000 ml @ 125 mls/hr Q8H ONCE IV Last administered on 08/06/16 16:07; Start 08/06/16 at 16:00; Stop 08/06/16 at 23:59 Hydromorphone HCl (Dilaudid) 1 mg O ONCE IV Last administered on 08/06/16 17: 15; Start 08/06/16 at 17:15; Stop 08/06/16 at 17:16; Status DC Prochlorperazine Edisylate (Compazine) 10 mg O ONCE IV Last administered on 17:58; Start 08/06/16 at 17:45; Stop 08/06/16 at 17:46; Status DC Metoclopramide HCl (Reglan) 10 mg O ONCE PO Last administered on 08/06/16 18: 49; Start 08/06/16 at 18:15; Stop 08/06/16 at 18:16; Status DC Progress Progress CBC unremarkable NA 148 BUN 20 Bilirubin 1.80 UA unremarkable Patient reports improved of pain after Dilaudid. Still having some nausea after Zofran. Patient reports improvement of nausea after compazine. Patient is able to keep water down without emesis. I discussed ultrasound results with patient and labs. I discussed with patient that her gallbladder did not show stones but could not be functioning and may need a Hida scan. I cannot rule out gastroenteritis or some type of food poisoning. Patient is discharged home improved with antiemetic and Ellerbe for pain. Patient verbalized understanding of treatment plan, close follow up with PCP and return precautions. Ultrasound US : Ultrasound: Gallbladder US (Positive sonographic Arriola sign, no evidence of acute cholecystits or bilary obstruction.) CESAR PALOMARES PHOTO STYLIST August 06, 2016 15:42
[2016-08-06] MEDS ORDERED: IBUP-1724 PO (15:54)
[2016-08-06] MEDS ORDERED: ATEN25TA PO (15:54)
[2016-08-06] MEDS ORDERED: HYDROMORPHONE 2mg/ml INJECTION IV ONE ×2 (16:00→17:15)
[2016-08-06] MEDS ORDERED: NORMAL SALINE 1,000 ML IV ONE (16:00)
[2016-08-06] MEDS ORDERED: ONDANSETRON 4mg/2ml INJECTION IV ONE (16:00)
[2016-08-06 16:23] LABS: BASOPHILS % (AUTO) 0.2 % (0-2); EOSINOPHILS # (AUTO) 0.2 T/MM3 (0-0.5); HCT - HEMATOCRIT 46.6 % (36-46); IMMATURE GRANULOCYTE # (AUTO) 0.01 T/MM3 (0.00-0.03); IMMATURE GRANULOCYTE % (AUTO) 0.1 % (0.0-0.5); LYMPHOCYTES # (AUTO) 0.9 T/MM3 (1-4.8); LYMPHOCYTES % (AUTO) 7.9 % (23-45); MEAN CORPUSCULAR HGB 29.3 UUG (26-34); MEAN CORPUSCULAR HGB CONC(MCHC 34.3 GM/DL (31-37); MEAN CORPUSCULAR VOLUME 85.2 UM3 (80-100); MEAN PLATELET VOLUME 10.9 UM3 (9.4-12.4); MONOCYTES # (AUTO) 0.8 T/MM3 (0-0.8); MONOCYTES % (AUTO) 6.9 % (0-9.0); NEUTROPHILS #(AUTO)-ABSOLUTE 9.1 T/MM3 (1.8-7.7); NEUTROPHILS % (AUTO) 82.9 % (33-66); RED BLOOD COUNT 5.47 M/MM3 (4.00-5.20)
[2016-08-06 16:29] LABS: ALBUMIN 4.8 G/DL (3.5-5.0); ALBUMIN/GLOBULIN RATIO 1.4 RATIO (1.1-2.2); ALKALINE PHOSPHATASE 89 U/L (38-126); ALT (SGPT) 45 U/L (9-52); ANION GAP 16 MEQ/L (5-15); AST (SGOT) 30 U/L (14-36); BUN/CREATININE RATIO 29 RATIO (6-26); CALCIUM 9.7 MG/DL (8.4-10.2); CHLORIDE 103 MEQ/L (98-107); CO2 - CARBON DIOXIDE 30 MEQ/L (22-30); CREATININE 0.7 MG/DL (0.7-1.2); GLOMERULAR FILTRATION RATE 88; GLUCOSE 97 MG/DL (65-110); LIPASE 99 U/L (23-300); POTASSIUM 3.5 MEQ/L (3.6-5); SODIUM 149 MEQ/L (134-144); TOTAL PROTEIN 8.2 G/DL (6.3-8.2)
[2016-08-06 17:06] LABS: BLOOD, URINE TRACE-INTACT (NEGATIVE); COLOR,URINE YELLOW (YELLOW); LEUKOCYTE ESTERASE ,URINE NEGATIVE (NEGATIVE); NITRITE,URINE NEGATIVE (NEGATIVE); UROBILINOGEN,URINE 0.2 EU/DL (NORMAL)
--- NOTE | 2016-08-06 17:20 | NUR ---
Sono Ultrasound in room
[2016-08-06] MEDS ORDERED: PROCHLORPERAZINE 10mg/2ml INJECTION IV ONE (17:45)
[2016-08-06] MEDS ORDERED: HYDR-4246 PO (18:21)
[2016-08-06] MEDS ORDERED: PROM25SU59 RECTALLY (18:21)
[2016-08-06] MEDS ORDERED: ONDA4TAB7 PO (18:21)
[2016-08-06 19:09] VITALS: BP 112/84; PULSE 88; RESP 14; TEMP 97; O2SAT 97
--- NOTE | 2016-08-07 08:27 | DI ---
Indication: ITS.REASON: epigastric and RUQ pain PROCEDURE: US GALLBLADDER: Encounter: Initial Comparison: None Technique: Grayscale and color Doppler sonographic imaging of the right upper quadrant of the abdomen was performed. Findings: Hepatic parenchyma is homogeneous without evidence for focal mass. The gallbladder is normal. There is no wall thickening, pericholecystic fluid or cholelithiasis. Sonographic Arriola's sign was reportedly positive. Both the intra and extrahepatic biliary system are of normal caliber with the common duct measuring 3 mm in dimension. Visualized portions of the head and body of the pancreas are unremarkable. The right kidney is present without collecting system dilatation. The right kidney measures 10 cm in length. Impression: Isolated positive sonographic Arriola's sign of uncertain clinical significance. There is no other sonographic evidence to suggest acute cholecystitis. No other abnormality seen. There is a preliminary report by [employer]. .
== END 2016-08-06 19:09 | disposition home or self-care (01) ==
LOC: ED 15:01
DX: R10.13 Epigastric pain (principal); R11.2 Nausea with vomiting, unspecified
CPT/HCPCS: 76705; 80053; 81003; 83690; 85025; 96361; 96374; 96375; 96376; 99284; J0780; J1170; J2405; J7030; 36000